=== PATIENT | female | born 1970 | race Caucasian/White ===

== ENCOUNTER 2016-06-05 10:16 | Inpatient (IN) | payer MEDICAID ==
[2016-06-05] VITALS (9 sets, daily range): BP systolic 107–152; BP diastolic 61–99; PULSE 65–86; RESP 14–19; TEMP 97.8–98.9; O2SAT 93–99
[~2016-06-05] VITALS: Ht 162.6 cm; Wt 79.4 kg
[~2016-06-05 10:16] MED LIST: ADVAI100I INH; ATOR80TA PO; BUSP15TA PO; DULO30 PO; GABA600T PO; LISI-363 PO; MORP15IN3 IMPLANPUMP; MSIR15 PO; TRAZ100 PO; VIST25CA PO
--- NOTE | 2016-06-05 10:34 | PD ---
HPI Chief Complaint: OD/ Ingestion Time Seen by Provider: 10:28 Travel History International Travel<30 days: No Contact w/Intl Traveler<30days: No Traveled to known affect area: No History of Present Illness HPI 45-year-old female came to the emergency room brought by EMS after she had been feeling lethargic and sleepy for past 2 days. Patient is on morphine pump as well as by mouth morphine for chronic pain. When they arrived they noticed that she was very groggy and slurred speech. We gave her IV Narcan which made the patient wake up a little bit and improved her oxygen saturation as well as blood pressure. Upon arrival to the emergency room patient continued to look lethargic and slurred speech but was answering questions appropriately. Her blood pressure was 105 systolic. Oxygen saturation was 95% on room air. Patient is a chronic smoker but does not require oxygen on a daily basis. She has history of cervical disc problems because of which she is on pain management. Patient says that she has not been feeling well for past 2-3 days because of increased sleepiness and lethargy. EMS noticed that her morphine pill bottle was missing 6 extra pills. Patient is refusing any suicidal ideations currently. [facility] Past Medical History Narrative Medical List of her past medical, social and family history was reviewed from the nursing note. Arthritis: Yes Asthma: Yes Anxiety: Yes Depression: Yes Cancer: No Diabetes: No Diminished Hearing: No Endocrine: No Fibromyalgia: Yes Gastrointestinal Disorders: No Hepatitis: No Hiatal Hernia: No Hypertension: Yes Immune Disorder: Yes (FIBROMYALGIA) Inguinal Hernia: Yes Medical other: No Musculoskeletal: Yes (FIBROMYALGA. NECK AND BACK,RSD, ARTHRITIS) Neurologic: Yes (COMPLEX REGIONAL PAIN SYNDROME (RSD) IN R HAND/ARM) Psychiatric: Yes (ANXIETY/ DEPRESSION) Reproductive: No Respiratory: Yes (ASTHMA) Thyroid Disease: No ?: Not Past Surgical History Abdominal Surgery: Yes (ABD.L HERNIA REPS X 6, ;,TAI) AICD: No Body Medical Devices: RIGHT URETERAL PSOLIS HITCH, PAIN PUMP Cardiac Surgery: No Section: Yes Ear Surgery: No Endocrine Surgery: No Eye Surgery: No Genitourinary Surgery: Yes (R KIDNEY/ BLADDER RECONSTR. WITH PSOLIS HITCH 2005) Gynecologic Surgery: Yes (C SECTION,HYSTERECTOMY 2004) Hysterectomy: Yes Joint Replacement: No Neurologic Surgery: No Pacemaker: No Thoracic Surgery: No Other Surgery: Yes (KIDNEY SX) Social History Alcohol Use: Yes (2-3 BEER/DAILY) Tobacco Use: Yes (1/2 PPD) Substance Use: No Allergies-Medications (Allergen,Severity, Reaction): Coded Allergies: Hydrocodone (Verified Allergy, Severe, Itching, 06/05/16) IRRITABILITY Simvastatin (Unverified Allergy, Severe, Irritability/Anxiety, 06/05/16) Tramadol (Unverified Allergy, Severe, Irritability/Anxiety, 06/05/16) Comments List of her allergies reviewed from the nursing note. Reported Meds & Prescriptions Reported Meds & Active Scripts Active Reported Trazodone HCl 100 Mg Tab 300 Mg PO HS Lisinopril 20 Mg Tab 20 Mg PO BID Gabapentin 600 Mg Tab 600 Mg PO QID Baclofen 10 Mg Tab 10 Mg PO TID PRN Vistaril (Hydroxyzine Pamoate) 25 Mg Cap 25 Mg PO TID Morphine Inj (Morphine Sulfate) 5 Mg/Ml Inj 4.4971 Mg IMPLANPUMP CONTINUOUS Morphine IR (Morphine Sulfate) 15 Mg Tab 15 Mg PO BID PRN Temazepam 30 Mg Cap 30 Mg PO HS PRN Advair Diskus Inh (Fluticasone-Salmeterol Inh) 250-50 Mcg/Blist Aer 1 Puff INH BID Rinse mouth after use. Narrative Medication List of her home medications reviewed from the nursing note. Review of Systems Except as stated in HPI: all other systems reviewed are Neg Physical Exam Narrative GENERAL: Lethargic, slurred speech, no obvious distress SKIN: Warm and dry. HEAD: Atraumatic. Normocephalic. EYES: Pupils equal and round. No scleral icterus. No injection or drainage. ENT: No nasal bleeding or discharge. Mucous membranes pink and moist. NECK: Trachea midline. No JVD. CARDIOVASCULAR: Regular rate and rhythm. No murmur appreciated. RESPIRATORY: No accessory muscle use. Clear to auscultation. Breath sounds equal bilaterally. GASTROINTESTINAL: Abdomen soft, non-tender, nondistended. Hepatic and splenic margins not palpable. MUSCULOSKELETAL: No obvious deformities. No clubbing. No cyanosis. No edema. NEUROLOGICAL: GCS of 14. No obvious cranial nerve deficits. Motor grossly within normal limits. Slurred speech. PSYCHIATRIC: Appropriate mood and affect; insight and judgment normal. Data Data Last Documented VS Vital Signs Date Time Temp Pulse Resp B/P Pulse Ox O2 Delivery O2 Flow Rate FiO2 06/05/16 13:00 86 18 152/99 99 Nasal Cannula 4 06/05/16 10:39 98.9 Orders Electrocardiogram (06/05/16 ) Ammonia (06/05/16 10:28) Complete Blood Count With Diff (06/05/16 10:28) Comprehensive Metabolic Panel (06/05/16 10:28) Creatine Kinase (Cpk) (06/05/16 10:28) Prothrombin Time / Inr (Pt) (06/05/16 10:28) Troponin I (06/05/16 10:28) Thyroid Stimulating Hormone (06/05/16 10:28) Urinalysis - C+S If Indicated (06/05/16 10:28) Chest, Single Ap (06/05/16 10:28) Ct Brain W/O Iv Contrast(Rout) (06/05/16 10:28) Blood Glucose (06/05/16 10:28) Ecg Monitoring (06/05/16 10:28) Iv Access Insert/Monitor (06/05/16 10:28) Oximetry (06/05/16 10:28) Sodium Chloride 0.9% Flush (Ns Flush) (06/05/16 10:30) Arterial Blood Gas (Abg) (06/05/16 ) Sodium Chlorid 0.9% 500 Ml Inj (Ns 500 M (06/05/16 10:45) CKMB (06/05/16 11:00) CKMB% (06/05/16 11:00) Drug Screen, Random Urine (06/05/16 12:10) Urine Culture (06/05/16 11:40) Naloxone Inj (Narcan Inj) (06/05/16 12:30) Naloxone Inj (Narcan Inj) (06/05/16 13:00) Sodium Chlor 0.9% 1000 Ml Inj (Ns 1000 M (06/05/16 13:00) Admit Order (Ed Use Only) (06/05/16 13:02) Labs Laboratory Tests Test 06/05/16 06/05/16 06/05/16 11:00 11:40 12:03 Prothrombin Time 10.7 SEC Prothromb Time International 1.0 RATIO Ratio Sodium Level 139 MEQ/L Potassium Level 3.8 MEQ/L Chloride Level 98 MEQ/L Carbon Dioxide Level 33.3 MEQ/L Anion Gap 8 MEQ/L Blood Urea Nitrogen 9 MG/DL Creatinine 1.15 MG/DL Estimat Glomerular Filtration 51 ML/MIN Rate Random Glucose 91 MG/DL Calcium Level 8.5 MG/DL Total Bilirubin 0.6 MG/DL Aspartate Amino Transf 29 U/L (AST/SGOT) Alanine Aminotransferase 15 U/L (ALT/SGPT) Alkaline Phosphatase 71 U/L Ammonia 43 MCMOL/L Total Creatine Kinase 206 U/L Creatine Kinase MB 3.3 NG/ML Creatine Kinase MB % 1.6 % Troponin I LESS THAN 0.02 NG/ML Total Protein 6.6 GM/DL Albumin 3.0 GM/DL Thyroid Stimulating Hormone 1.740 uIU/ML 3rd Gen White Blood Count 9.6 TH/MM3 Red Blood Count 4.45 MIL/MM3 Hemoglobin 13.7 GM/DL Hematocrit 40.3 % Mean Corpuscular Volume 90.4 FL Mean Corpuscular Hemoglobin 30.7 PG Mean Corpuscular Hemoglobin 34.0 % Concent Red Cell Distribution Width 16.2 % Platelet Count 366 TH/MM3 Mean Platelet Volume 7.6 FL Neutrophils (%) (Auto) 60.4 % Lymphocytes (%) (Auto) 23.2 % Monocytes (%) (Auto) 10.2 % Eosinophils (%) (Auto) 5.7 % Basophils (%) (Auto) 0.5 % Neutrophils # (Auto) 5.8 TH/MM3 Lymphocytes # (Auto) 2.2 TH/MM3 Monocytes # (Auto) 1.0 TH/MM3 Eosinophils # (Auto) 0.6 TH/MM3 Basophils # (Auto) 0.0 TH/MM3 CBC Comment DIFF FINAL Differential Comment Urine Opiates Screen POS Urine Barbiturates Screen NEG Urine Amphetamines Screen NEG Urine Benzodiazepines Screen POS Urine Cocaine Screen NEG Urine Cannabinoids Screen NEG Urine Color YELLOW Urine Turbidity HAZY Urine pH 7.0 Urine Specific [place] 1.011 Urine Protein NEG mg/dL Urine Glucose (UA) NEG mg/dL Urine Ketones NEG mg/dL Urine Occult Blood TRACE Urine Nitrite POS Urine Bilirubin NEG Urine Urobilinogen LESS THAN 2.0 MG/DL Urine Leukocyte Esterase LARGE Urine RBC 1 /hpf Urine WBC 77 /hpf Urine Bacteria MANY /hpf Urine Hyaline Casts 4 /lpf Microscopic Urinalysis Comment CATH-CULTURE IND Blood Gas Puncture Site LT RADIAL Blood Gas Patient Temperature 98.6 Blood Gas HCO3 33 mmol/L Blood Gas Base Excess 7.6 mmol/L Blood Gas Oxygen Saturation 77 % Arterial Blood pH 7.37 Arterial Blood Partial 58 mmHg Pressure CO2 Arterial Blood Partial 53 mmHG Pressure O2 Arterial Blood Oxygen Content 13.9 Vol % Arterial Blood 5.2 % Carboxyhemoglobin Arterial Blood Methemoglobin 2.6 % Blood Gas Hemoglobin 12.9 G/DL Blood Gas Inspired Oxygen 21 % MDM Medical Decision Making Medical Screen Exam Complete: Yes Emergency Medical Condition: Yes Medical Record Reviewed: Yes Interpretation(s) Twelve-lead EKG was reviewed by me. Normal sinus rhythm, normal axis, nonspecific ST-T wave changes. Heart rate of 79 bpm. Differential Diagnosis Accidental Morphine overdose, intracranial bleed, sepsis Narrative Course 12:47 PM patient started to get progressively more lethargic. She was hypoxic on room air to low 90s. Blood gas was done which shows normal pH but increased PCO2 and decreased PO2. I just reassessed her and she was difficult to be aroused. GCS was 12. I decided to give her 2 mg of Narcan which woke her up. Patient has a morphine pump still growing and it is into subcutaneous tissue. There is no way for me to turn that off. However it should be turned off given the fact that she is opiate overdose and the medication from the pump is counterproductive is in the current management for this OD. The nurse is trying to find instructions for it. Patient's blood pressure was 87/45. She is on a nasal cannula 2 L saturating 98%. I've ordered a liter of IV fluid bolus. She will require admission. Awaiting for the hospitalist to call back. Chest x-ray and head CT were within normal limits. I started her on Narcan drip. Patient should go to the ICU. Awaiting for the breastfeeding educator to call back. 1.30 PM the [employer] rep will be coming to dial it down. He asked me to order it. Critical Care Narrative Aggregate critical care time was 75 minutes. Time to perform other separately billable procedures was not included in the critical care time. My time did not include minutes spent treating any other patients simultaneously or on activities that did not directly contribute to the patient's treatment. The services I provided to this patient were to treat and/or prevent clinically significant deterioration that could result in: Altered mental status, accidental opiate overdose, cardiorespiratory depression, Narcan drip I provided critical care services requiring my management, as noted below: Chart data review, documentation time, medication orders and management, vital sign assessments/reviewing monitor data, ordering and reviewing lab tests, ordering and interpreting/reviewing x-rays and diagnostic studies, care of the patient and discussion of the patient with the admitting physicians. Procedures EKG Prior to Arrival: Yes Diagnosis Primary Impression: Altered mental status Qualified Code: R40.1 - Stupor Additional Impressions: cardiorespiratory depression Opiate overdose Qualified Code: T40.601A - Opiate overdose, accidental or unintentional, initial encounter Admitting Information Admitting Physician Requests: Admit Dhruv Leal MD Jun 05, 2016 10:34
[2016-06-05] MEDS ORDERED: SODIUM CHLORID 0.9% 500 ML INJ 500 ML IV ONE (10:45)
[2016-06-05] MEDS ORDERED: VIST25CA PO (11:16)
[2016-06-05] MEDS ORDERED: ADVA250A INH (11:16)
[2016-06-05] MEDS ORDERED: BACL10TA PO (11:16)
[2016-06-05] MEDS ORDERED: MORP1INJ IMPLANPUMP (11:16)
[2016-06-05] MEDS ORDERED: TEMA30CA PO (11:16)
[2016-06-05] MEDS ORDERED: GABA600T PO (11:16)
[2016-06-05] MEDS ORDERED: LISI-515 PO (11:16)
[2016-06-05] MEDS ORDERED: MSIR15 PO (11:16)
[2016-06-05] MEDS ORDERED: TRAZ100T5 PO (11:17)
--- NOTE | 2016-06-05 11:26 | RADRPT ---
EXAM DATE/TIME: 06/05/2016 10:51 [facility] COMPARISON: CHEST SINGLE AP, February 12, 2016, 16:52. INDICATIONS : Syncope, Worsening Short of Breath. MEDICAL HISTORY : Hypertension. SURGICAL HISTORY : Hysterectomy. section. ENCOUNTER: Initial ACUITY: 2 days PAIN SCORE: 0/10 LOCATION: Bilateral chest FINDINGS: A single view of the chest demonstrates the lungs to be symmetrically aerated without evidence of mas s, infiltrate or effusion. The cardiomediastinal contours are unremarkable. Osseous structures are intact. CONCLUSION: No evidence of acute cardiopulmonary disease. Chalino Landeros MD on June 05, 2016 at 11:25 Board Certified Radiologist. This report was verified electronically.
--- NOTE | 2016-06-05 11:31 | RADRPT ---
EXAM DATE/TIME: 06/05/2016 11:11 [facility] COMPARISON: No previous studies available for comparison. INDICATIONS : Altered mental status. RADIATION DOSE: 40.38 CTDIvol (mGy) MEDICAL HISTORY : Hypertension. Fibromyalgia. SURGICAL HISTORY : Hysterectomy. ENCOUNTER: Initial ACUITY: 1 day PAIN SCALE: 0/10 LOCATION: cranial TECHNIQUE: Multiple contiguous axial images were obtained of the head. Using automated exposure control and adj ustment of the mA and/or kV according to patient size, radiation dose was kept as low as reasonably a chievable to obtain optimal diagnostic quality images. FINDINGS: CEREBRUM: The ventricles are normal for age. No evidence of midline shift, mass lesion, hemorrhage or acute in farction. No extra-axial fluid collections are seen. POSTERIOR FOSSA: The cerebellum and brainstem are intact. The 4th ventricle is midline. The cerebellopontine angle i s unremarkable. EXTRACRANIAL: There is mild paranasal sinus mucoperiosteal thickening, mainly the ethmoid air cells. SKULL: The calvaria is intact. No evidence of skull fracture. CONCLUSION: No acute intracranial abnormality. Mild sinus disease. Chalino Landeros MD on June 05, 2016 at 11:29 Board Certified Radiologist. This report was verified electronically.
[2016-06-05 11:32] LABS: AUTOMATED NEUTROPHIL # 5.8 TH/MM3 (1.8-7.7); BASOPHIL % 0.5 % (0.0-2.0); EOSINOPHIL # 0.6 TH/MM3 (0-0.4); EOSINOPHIL % 5.7 % (0.0-4.0); HEMATOCRIT 40.3 % (35.0-46.0); HEMO FLAGS DIFF FINAL; LYMPH % 23.2 % (9.0-44.0); LYMPHOCYTE # 2.2 TH/MM3 (1.0-4.8); MEAN CELL VOLUME 90.4 FL (80.0-100.0); MEAN CORPUSCULAR HEMOGLOBIN 30.7 PG (27.0-34.0); MONO % 10.2 % (0.0-8.0); NEUT % 60.4 % (16.0-70.0); PLATELET COUNT 366 TH/MM3 (150-450); RED BLOOD COUNT 4.45 MIL/MM3 (4.00-5.30); RED CELL DISTRIBUTION WIDTH 16.2 % (11.6-17.2); WHITE BLOOD COUNT 9.6 TH/MM3 (4.0-11.0)
[2016-06-05 11:39] LABS: PROTHROMBIN TIME - PATIENT 10.7 SEC (9.8-11.6)
[2016-06-05 12:04] LABS: ALKALINE PHOSPHATASE 71 U/L (45-117); ALT (GPT) 15 U/L (10-53); ANION GAP 8 MEQ/L (5-15); BICARBONATE 33.3 MEQ/L (21.0-32.0); BLOOD UREA NITROGEN 9 MG/DL (7-18); CHLORIDE 98 MEQ/L (98-107); CREATINE KINASE 206 U/L (26-192); GLOMERULAR FILTRATION RATE 51 ML/MIN (>89); SODIUM (NA) 139 MEQ/L (136-145); TOTAL BILIRUBIN ADULT 0.6 MG/DL (0.2-1.0)
[2016-06-05 12:05] LABS: AST (GOT) 29 U/L (15-37); POTASSIUM 3.8 MEQ/L (3.5-5.1)
[2016-06-05 12:14] LABS: BLOOD GAS BASE EXCESS 7.6 mmol/L (-2-2); BLOOD GAS CARBOXYHEMOGLOBIN 5.2 % (0-4); BLOOD GAS HCO3 33 mmol/L (22-26); BLOOD GAS METHEMOGLOBIN 2.6 % (0-2); BLOOD GAS O2 HGB SATURATION 77 % (90-100); BLOOD GAS OXYGEN CONTENT 13.9 Vol % (12.0-20.0); BLOOD GAS PCO2 58 mmHg (38-42); BLOOD GAS PO2 53 mmHG (61-120); BLOOD GAS TOTAL HGB 12.9 G/DL (12.0-16.0); TEMP CORR TO 98.6
[2016-06-05 12:15] LABS: CRITICAL VALUE YES; DRAW SITE LT RADIAL; FIO2 21 %; NUMBER OF ARTERIAL PUNCTURES 1; STAT YES; ULNAR PULSE PRESENT
[2016-06-05 12:16] LABS: BACTERIA, URINE MANY /hpf; BLOOD, URINE TRACE (NEG); COMMENT (UR) CATH-CULTURE IND; CULTURE IF INDICATED CATH CULTURE IND; GLUCOSE,URINE NEG (NEG); HYALINE CAST, URINE 4 /lpf (RARE); KETONE, URINE NEG (NEG); NITRITE,URINE POS (NEG); URINE COLOR YELLOW (YELLW/STRAW)
[2016-06-05 12:18] LABS: CKMB 3.3 NG/ML (0.5-3.6)
[2016-06-05 12:25] LABS: AMPHETAMINE, URINE NEG (NEG); BARBITURATES, URINE NEG (NEG); COCAINE, URINE NEG (NEG)
[2016-06-05] MEDS ORDERED: NALOXONE HCL 2 MG/2 ML VIAL IV PUSH ONE (12:30)
[2016-06-05] MEDS ORDERED: SODIUM CHLOR 0.9% 1000 ML INJ 1,000 ML IV ONE (13:00)
[2016-06-05] MEDS ORDERED: NALOXONE INJ 4 MG in DEXTROSE 5% IN WATER INJ 246 ML IV SCH ×2 (13:00)
[2016-06-05] MEDS ORDERED: CHLORHEXIDINE GLUCONATE 2 % 1 PACK (2 CLOTHS) TOP PRN (13:15)
[2016-06-05] MEDS ORDERED: MISCELLANEOUS NURSING INFORMATION XX SCH (13:15)
[2016-06-05] MEDS ORDERED: RESP: ALBUTEROL 2.5 MG/IPRATROPIUM 0.5 MG NEB (PRN) INH (13:15)
[2016-06-05] MEDS ORDERED: GLUCAGON 1 MG/ML VIAL OTHER PRN (14:15)
[2016-06-05] MEDS ORDERED: DEXTROSE 50% IN WATER 50 ML VIAL(D50) IV PUSH PRN (14:15)
[2016-06-05] MEDS: ENOXAPARIN SODIUM 40 MG/0.4 ML SYRINGE SQ SCH (14:34)
[2016-06-05] MEDS: DEXT 5%-NACL 0.9% 1000 ML INJ 1,000 ML IV SCH ×2 (14:34→18:11)
--- NOTE | 2016-06-05 15:09 | MH ---
cc: YAQUELIN CAMPOS DATE OF ADMISSION: 06/05/2016 DATE OF : 1970 HISTORY: The patient is a 45 year-old female with past medical history of bronchial asthma, anxiety, depression, fibromyalgia, chronic pain syndrome on p.o. Morphine at home in addition to morphine pump. She was brought into the [facility] Emergency Department for lethargy and also for altered mental status. According to the patients father the patient was very lethargic. She came trembling and was getting argumentative. He subsequently called [facility] Medical [facility] and when the arrived they noticed the patient to be groggy with slurred speech. She was given Narcan IV and subsequently she woke up and improved her o2 saturation and blood pressure as well. When she arrived to the emergency department the patient began lethargic again however, she was answering questions appropriately. She had an o2 saturation of 95% on room air. The patient does have a history of cervical disc problems and she is on pain management. She was given additional dose of Narcan 2 mg IV push which improved her mental status. In the emergency room she was given approximately 1.5 liters of normal saline. Arterial blood gas was preformed on room air which showed likely mixed venous gas with pH of 7.37, co2 58, pa02 53, blood clot 33, saturations 77%. When seen the patient was awake, alert, laying in bed in no acute respiratory distress. She is on four liters of oxygen with saturation of 97%. Her urine drug screen was positive for opiates and benzodiazepines. Due to her initial mental status a CT scan of the brain was obtained which showed no acute intracranial abnormality. Also a chest x-ray was done which showed no evidence of any acute cardiopulmonary disease. No evidence of any fever or leukocytosis. She denies any suicidal ideations. PAST MEDICAL HISTORY: 1. Significant for bronchial asthma. 2. Depression. 3. Chronic pain syndrome. 4. Fibromyalgia. 5. Cervical disc disease of the neck and back. 6. Arthritis. PAST SURGICAL HISTORY: 1. Previous section. 2. Previous hysterectomy 3. Morphine pain pump placement. 4. Renal surgery. SOCIAL HISTORY: Active smoker and drinker. ALLERGIES TRAMADOL SIMVASTATIN HYDROCODONE REPORTED MEDICATIONS: 1. Advair. 2. Morphine sulfate p.o. 15 mg 3. Vistaril 4. Baclofen 5. Gabapentin 6. Lisinopril 7. Trazodone FAMILY HISTORY: Noncontributory. REVIEW OF SYSTEMS As per history of present illness. The rest of the review of systems is unremarkable. PHYSICAL EXAMINATION: IN GENERAL: A 45 year-old female lying in bed in no acute respiratory distress. VITAL SIGNS: Temperature 98.9, pulse 87, blood pressure 152/99, saturation 97% on four liters of oxygen. HEAD, EYES, EARS, NOSE, AND THROAT: Atraumatic, normocephalic. Pupils equal, round, reactive to light and accommodation. Extraocular muscles intact, conjunctiva pink, nonicteric sclera, oral mucosa within normal limits. NECK: Supple, no jugular venous distention, adenopathy or thyromegaly trachea midline. CARDIOVASCULAR SYSTEM: Regular rate and rhythm, normal S1, S2, no murmurs, rubs, or gallops. RESPIRATORY: Bilateral equal entry, no rales or wheezing. ABDOMEN: The abdomen is soft, nontender, no distention. Positive bowel sounds. EXTREMITIES: No clubbing, cyanosis or edema. NEUROLOGIC: Awake, alert, no focal or sensory deficit. LABORATORY DATA: Sodium 139, potassium 3.8, chloride 98, co2 33, blood urea nitrogen 9, creatinine 1.15, glucose 91, ammonia 43. Aspartate aminotransferase 29, Alt 15, alkaline phosphatase 71. Total creatine kinase 206, pH 1.74. White blood cell 9.6, hemoglobin 13.7, hematocrit 40, platelet count 366, INR 1.0, PT 10.7. Urine drug screen is positive for opiates and benzodiazepines. Urinalysis is positive for leukocyte esterase, nitrates 77, white blood count many bacteria. RADIOGRAPHIC STUDIES: CT scan of the brain, negative for acute intracranial disease. A chest x-ray showed no acute cardiopulmonary disease. IMPRESSION: 1. Altered mental status improved post Narcan 2. Drug overdose with the urine drug screen positive for opiates and benzodiazepines. 3. Urinary tract infection. 4. Chronic pain syndrome. 5. Fibromyalgia. 6. Hypertension. 7. History of bronchial asthma. 8. Anxiety/depression. RECOMMENDATIONS: 1. Monitor neuro status and avoid sedatives. Hold Trazodone, Gabapentin. CT scan of the brain in the emergency room is negative for acute disease. We will place on Thiamine, Multivitamins. Folic acid given her ethyl alcohol use and monitor for signs of decrease. 2. Continue with oxygen and maintain saturations above 92%. 3. Bronchodilators in the form of duoneb q six plus q 2 as needed for shortness of breath. 4. Monitor heart rate and blood pressure and maintain map greater than 65 mmHg. She was given approximately 1.5 liters of crystalloids. We will place on IV fluids in the form of D5 normal saline at 75 mls per hour. 5. Monitor renal function, intake and output and electrolyte replacement as needed. 6. Start p.o. diet as tolerated. 7. Place on Rocephin 1 gram IV daily for urinary tract infection and follow up on urine culture. Chest x-ray on arrival showed no evidence of any acute cardiopulmonary disease. 8. Monitor complete blood count. 9. A sliding scale insulin is needed for glycemic control. 10. No indications for gastrointestinal prophylaxis. 11. Deep venous thrombosis prophylaxis for deep venous thrombosis and Lovenox 40 mg subcutaneous daily. 12. Further recommendations will be based on the hospital course. MD NIKKIE Pelayo/tena /2:02 PM /2:14 PM [facility]
[2016-06-05] MEDS: INSULIN NovoLIN REGULAR SUPPLEMENTAL SCALE SQ SCH ×2 (16:00→22:00)
[2016-06-05] MEDS: THIAMINE HCL 100 MG TAB PO SCH (16:00)
[2016-06-05] MEDS: FOLIC ACID 1 MG TAB PO SCH (16:00)
[2016-06-05] MEDS: RESP: ALBUTEROL 2.5 MG/IPRATROPIUM 0.5 MG NEB (SCH) INH ×2 (16:00→20:37)
[2016-06-05] MEDS: MULTIVITAMIN TAB PO SCH (16:00)
--- NOTE | 2016-06-05 17:23 | EKG ---
Date Performed: 06/05/2016 Time Performed: 10:32:03 PTAGE: 45 years EKG: Sinus rhythm Compared to prior tracing no significant change NORMAL ECG PREVIOUS TRACING : 02/12/2016 16.54 DOCTOR: Cachorro Carreno Interpretating Date/Time 06/05/2016 17:22:04
[2016-06-05] MEDS: cefTRIAXone INJ 1,000 MG in SODIUM CHLORIDE 0.9% INJ 100 ML IV SCH (18:11)
[2016-06-06] VITALS (14 sets, daily range): BP systolic 101–159; BP diastolic 59–89; PULSE 70–100; RESP 12–21; TEMP 97.7–98.8; O2SAT 94–99
[2016-06-06] MEDS: RESP: ALBUTEROL 2.5 MG/IPRATROPIUM 0.5 MG NEB (SCH) INH ×4 (03:35→20:46)
[2016-06-06] MEDS: INSULIN NovoLIN REGULAR SUPPLEMENTAL SCALE SQ SCH ×4 (04:00→22:00)
[2016-06-06] MEDS: CHLORHEXIDINE GLUCONATE 2 % 1 PACK (2 CLOTHS) TOP SCH (04:00)
[2016-06-06 04:44] LABS: AUTOMATED NEUTROPHIL # 7.2 TH/MM3 (1.8-7.7); BASOPHIL # 0.1 TH/MM3 (0-0.2); BASOPHIL % 0.6 % (0.0-2.0); EOSINOPHIL # 0.6 TH/MM3 (0-0.4); EOSINOPHIL % 5.8 % (0.0-4.0); HEMATOCRIT 39.2 % (35.0-46.0); HEMO FLAGS DIFF FINAL; LYMPH % 19.1 % (9.0-44.0); LYMPHOCYTE # 2.1 TH/MM3 (1.0-4.8); MEAN CELL VOLUME 91.3 FL (80.0-100.0); MEAN CORPUSCULAR HEMOGLOBIN 29.8 PG (27.0-34.0); MEAN CORPUSCULAR HGB CONC 32.6 % (32.0-36.0); MONO % 8.2 % (0.0-8.0); NEUT % 66.3 % (16.0-70.0); PLATELET COUNT 359 TH/MM3 (150-450); RED CELL DISTRIBUTION WIDTH 16.7 % (11.6-17.2); WHITE BLOOD COUNT 10.8 TH/MM3 (4.0-11.0)
[2016-06-06 05:05] LABS: ALT (GPT) 13 U/L (10-53); ANION GAP 8 MEQ/L (5-15); AST (GOT) 14 U/L (15-37); BICARBONATE 33.5 MEQ/L (21.0-32.0); BLOOD UREA NITROGEN 9 MG/DL (7-18); CHLORIDE 102 MEQ/L (98-107); GLOMERULAR FILTRATION RATE 67 ML/MIN (>89); POTASSIUM 3.3 MEQ/L (3.5-5.1); SODIUM (NA) 143 MEQ/L (136-145)
[2016-06-06 05:07] LABS: ALKALINE PHOSPHATASE 64 U/L (45-117); TOTAL BILIRUBIN ADULT 0.5 MG/DL (0.2-1.0)
[2016-06-06] MEDS ORDERED: POTASSIUM CHLORIDE 10 MEQ CONTROLLED RELEASE TAB PO ONE (08:15)
--- NOTE | 2016-06-06 08:19 | PD.TRANSFR ---
Transfer Summary Admission Date Jun 05, 2016 at 13:04 Admitting Diagnosis altered mental status, opiate overdose, hypoxia Diagnoses: (1) Altered mental status Diagnosis: Principal (2) Opiate overdose Diagnosis: Principal (3) Hypokalemia Diagnosis: Principal (4) UTI (urinary tract infection) Diagnosis: Principal (5) Chronic low back pain Diagnosis: Secondary (6) Hypertension Diagnosis: Secondary Transfer Summary/Subjective The patient is a 45 year-old female with past medical history of bronchial asthma, anxiety, depression, fibromyalgia, chronic pain syndrome on p.o. Morphine at home in addition to morphine pump. She was brought into the [facility] Emergency Department for lethargy and also for altered mental status. According to the patients father the patient was very lethargic. She came trembling and was getting argumentative. He subsequently called Emergency Medical Services and when the arrived they noticed the patient to be groggy with slurred speech. She was given Narcan IV and subsequently she woke up and improved her o2 saturation and blood pressure as well. When she arrived to the emergency department the patient began lethargic again however, she was answering questions appropriately. She had an o2 saturation of 95% on room air. The patient does have a history of cervical disc problems and she is on pain management. She was given additional dose of Narcan 2 mg IV push which improved her mental status. In the emergency room she was given approximately 1.5 liters of normal saline. Arterial blood gas was preformed on room air which showed likely mixed venous gas with pH of 7.37, co2 58, pa02 53, blood clot 33, saturations 77%. When seen the patient was awake, alert, laying in bed in no acute respiratory distress. She is on four liters of oxygen with saturation of 97%. Her urine drug screen was positive for opiates and benzodiazepines. Due to her initial mental status a CT scan of the brain was obtained which showed no acute intracranial abnormality. Also a chest x-ray was done which showed no evidence of any acute cardiopulmonary disease. No evidence of any fever or leukocytosis. She denies any suicidal ideations. 06/06: Sitting up in bed. No acute distress. No suicidal ideation. Complaints of back pain Objective Vital Signs Date Time Temp Pulse Resp B/P Pulse Ox O2 Delivery O2 Flow Rate FiO2 06/06/16 07:00 99 Nasal Cannula 2.00 06/06/16 06:00 87 06/06/16 04:00 98.1 12 112/60 Intake and Output 06/05/16 06/05/16 06/06/16 08:00 16:00 00:00 Intake Total 1033 ml Output Total 2000 ml Balance -967 ml Result Diagram: 06/06/16 0427 06/06/16 0427 Other Results Laboratory Tests Test 06/05/16 12:03 Blood Gas Puncture Site LT RADIAL Blood Gas Patient Temperature 98.6 Blood Gas HCO3 33 mmol/L (22-26) Blood Gas Base Excess 7.6 mmol/L (-2-2) Blood Gas Oxygen Saturation 77 % (90-100) Arterial Blood pH 7.37 (7.380-7.420) Arterial Blood Partial 58 mmHg (38-42) Pressure CO2 Arterial Blood Partial 53 mmHG Pressure O2 (61-120) Arterial Blood Oxygen Content 13.9 Vol % (12.0-20.0) Arterial Blood 5.2 % (0-4) Carboxyhemoglobin Arterial Blood Methemoglobin 2.6 % (0-2) Blood Gas Hemoglobin 12.9 G/DL (12.0-16.0) Blood Gas Inspired Oxygen 21 % Objective Remarks PHYSICAL EXAMINATION: IN GENERAL: A 45 year-old female lying in bed in no acute respiratory distress. HEENT: Atraumatic, normocephalic. Pupils equal NECK: Supple, no jugular venous distention CARDIOVASCULAR SYSTEM: Regular rate and rhythm, normal S1, S2, no murmurs, rubs , or gallops. RESPIRATORY: Bilateral equal entry, no rales or wheezing. ABDOMEN: The abdomen is soft, nontender, no distention. Positive bowel sounds. EXTREMITIES: No clubbing, cyanosis or edema. NEUROLOGIC: Awake, alert, no focal deficit. A/P Assessment and Plan ASSESSMENT Altered mental status improved post Narcan Drug overdose with the urine drug screen positive for opiates and benzodiazepines. Urinary tract infection. Chronic pain syndrome. Fibromyalgia. Hypertension. History of bronchial asthma. Anxiety/depression. RECOMMENDATIONS: -Monitor neuro status and avoid sedatives. Hold Trazodone, Gabapentin. -CT scan of the brain in the emergency room is negative for acute disease. -Continue Thiamine, Multivitamins. Folic acid given her ethyl alcohol use and monitor for signs of decrease. -Continue with oxygen and maintain saturations above 92%. -Bronchodilators in the form of duoneb q six plus q 2 as needed for shortness of breath. -Monitor heart rate and blood pressure and maintain map greater than 65 mmHg. -DC IVF -Monitor renal function, intake and output and electrolyte replacement as needed. -Advance diet as tolerated -Continue Rocephin 1 gram IV daily for urinary tract infection and follow up on urine culture. -Monitor complete blood count. -No indications for gastrointestinal prophylaxis. -Deep venous thrombosis prophylaxis for deep venous thrombosis and Lovenox 40 mg subcutaneous daily. Dispo: Psych consulted. Transferred to [facility]. Hospitalist consulted to assume care Taylor Allred MD Jun 06, 2016 08:19 shortness of breath. 4. Monitor heart rate and blood pressure and maintain map greater than 65 mmHg. She was given approximately 1.5 liters of crystalloids. We will place on IV fluids in the form of D5 normal saline at 75 mls per hour. 5. Monitor renal function, intake and output and electrolyte replacement as needed. 6. Start p.o. diet as tolerated. 7. Place on Rocephin 1 gram IV daily for urinary tract infection and follow up on urine culture. Chest x-ray on arrival showed no evidence of any acute cardiopulmonary disease. 8. Monitor complete blood count. 9. A sliding scale insulin is needed for glycemic control. 10. No indications for gastrointestinal prophylaxis. 11. Deep venous thrombosis prophylaxis for deep venous thrombosis and Lovenox 40 mg subcutaneous daily. 12. Further recommendations will be based on the hospital course. MD Chalino Pelayo Sinoj K. MD Jun 06, 2016 08:19
[2016-06-06] MEDS: THIAMINE HCL 100 MG TAB PO SCH (08:58)
[2016-06-06] MEDS: FOLIC ACID 1 MG TAB PO SCH (08:58)
[2016-06-06] MEDS: MULTIVITAMIN TAB PO SCH (08:58)
[2016-06-06] MEDS: ACETAMINOPHEN 325 MG TAB PO PRN ×2 (10:54→20:10)
--- NOTE | 2016-06-06 11:45 | PD.CONS ---
Provisional Diagnosis Admission Date Jun 05, 2016 at 13:04 [place]. Accidental drug overdose P50.901a History of Present Illness Service Psychiatry Consult Requested By Attending James Reason for Consult Altered mental status Primary Care Physician No Primary Care Physician HPI Patient is a 45 white female who lives with her father history of chronic pain that has a morphine pump also takes supplemental oral morphine. Patient seen by a pain doctor. Was found by her father and obtunded state. Paramedics were called. Patient did respond appropriately to the use of Narcan. In toxicology was positive for opiates and benzodiazepines. At the present time patient sitting quietly in her room 510. Patient's father present throughout session as agreed to with the patient. Patient alert oriented calm cooperative at this time denies any suicidal homicidal ideation intent or plan at any time at this denies any voices or visions with this stating she thought she was taking her oral morphine is given. Though she is also multiple other medications she does see some clinician through [facility]. Patient denies any inpatient psychiatric hospitalization. Patient denies any alcohol use since July 2015. She denies other drug use. At the present time patient does not meet Leal act criteria. Does not meet criteria for inpatient psychiatric hospitalization. Would suggest perhaps that she or she and her father better monitor and dispense medications sister appears to be a multiplicity of physicians medications prescribed for this lady. No reformations medication by me thanks for consult I will sign off the present time Review of Systems Except as stated in HPI: all other systems reviewed are Neg Past Family Social History Coded Allergies: Hydrocodone (Verified Allergy, Severe, Itching, 06/05/16) IRRITABILITY Simvastatin (Unverified Allergy, Severe, Irritability/Anxiety, 06/05/16) Tramadol (Unverified Allergy, Severe, Irritability/Anxiety, 06/05/16) Past Medical History History chronic pain Reported Medications Trazodone HCl 100 Mg [id number] Mg PO HS 06/05/16 Lisinopril 20 Mg Tab20 Mg PO BID #30 TAB Ref 0 06/05/16 Gabapentin 600 Mg [id number] Mg PO QID #90 TAB Ref 0 06/05/16 Baclofen 10 Mg Tab10 Mg PO TID PRN (MUSCLE SPASM) Ref 0 06/05/16 Hydroxyzine Pamoate (Vistaril)25 Mg Cap25 Mg PO TID Ref 0 06/05/16 Morphine Inj 5 Mg/Ml Inj4.4971 Mg IMPLANPUMP CONTINUOUS 06/05/16 Morphine IR 15 Mg Tab15 Mg PO BID PRN (BREAKTHROUGH PAIN) Ref 0 06/05/16 Temazepam 30 Mg Cap30 Mg PO HS PRN (INSOMNIA) #30 CAP Ref 0 06/05/16 Fluticasone-Salmeterol Inh (Advair Diskus Inh)250-50 Mcg/Blist Aer1 Puff INH BID #1 INHALER Ref 0 Rinse mouth after use. 06/05/16 Current Medications Medications (Trade) Dose Ordered Sig/Tere Route Start Time Stop Time Status Last Admin IV Flush 2 ml 2 ml UNSCH PRN IVF 06/05/16 10:30 (Narcan Inj/D5W Inj) 250 ml @ 0 mls/hr TITRATE IV 06/05/16 13:00 (Lovenox Inj) 40 mg Q24H SQ 06/05/16 14:00 06/05/16 14:34 Miscellaneous Information 1 [id number] XX 06/05/16 13:15 (Chlorhexidine 2% Cloth) 3 pack Taper DAILY@04 TOP 06/06/16 04:00 06/02/17 03:59 Chlorhexidine Gluconate 3 pack 3 pack UNSCH PRN TOP 06/05/16 13:15 (Rocephin Inj/NS Inj) 100 ml @ 200 mls/hr Q24H IV 06/05/16 16:00 06/05/16 18:11 (Vitamin B1) 100 mg DAILY PO 06/05/16 16:00 06/06/16 08:58 (Theragran) 1 tab DAILY PO 06/05/16 16:00 06/06/16 08:58 (Folate) 1 mg DAILY PO 06/05/16 16:00 06/06/16 08:58 (D50w (Vial) Inj) 25 ml UNSCH PRN IV PUSH 06/05/16 14:15 (Glucagon Inj) 1 mg UNSCH PRN OTHER 06/05/16 14:15 (NovoLIN R SUPPLEMENTAL SCALE) 1 Q6H SQ 06/05/16 16:00 (Tylenol) 650 mg Q6H PRN PO 06/06/16 11:00 06/06/16 10:54 Family History No history mental health and family Social History Patient lives with father Patient's Strengths (min. 2) Patient verbal [facility] has supportive father Physical Exam Please see med surge assessment Vital Signs Vital Signs Date Time Temp Pulse Resp B/P Pulse Ox O2 Delivery O2 Flow Rate FiO2 06/06/16 07:00 99 Nasal Cannula 2.00 06/06/16 06:00 87 06/06/16 04:00 98.1 12 112/60 I/O 06/05/16 06/05/16 06/06/16 08:00 16:00 00:00 Intake Total 1033 ml Output Total 2000 ml Balance -967 ml Mental Status Examination Alert oriented white female laying calmly in bed with father and nurse present throughout session calm cooperative with good eye contact Speech: Pressured Orientation: x3 Memory: Unremarkable Thought Process: Logical Thought Content: Unremarkable Hallucination Type: None Attention and Concentration: Good Suicidal Ideation: No Homicidal Ideation: No Previous Homicide Attempts: No Insight: Fair Judgement: Poor Affect: Other (good range and intensity) Mood: Euthymic Motor Activity: Normal gait (patient laying in bed) Assessment & Plan Problem List: (1) opiate-induced altered mental status (2) Accidental drug overdose ICD Code: T50.901A Assessment & Plan Estimated LOS: days patient calm cooperative I seen no indication for psychiatric hospitalization under the voluntary or involuntary. Did recommend that she and her father coordinate better monitoring dispensing of her multiple medication that she has at home. They should consult was sent off the present time Discharge Planning See above Request HC Surrog/Guard Advoc?: No Chalino Silva MD Jun 06, 2016 11:45
[2016-06-06] MEDS: ENOXAPARIN SODIUM 40 MG/0.4 ML SYRINGE SQ SCH (14:41)
[2016-06-06] MEDS: cefTRIAXone INJ 1,000 MG in SODIUM CHLORIDE 0.9% INJ 100 ML IV SCH (16:12)
[2016-06-06] MEDS: DEXMEDETOMIDINE INJ 50 ML IV SCH (17:15)
[2016-06-07] VITALS (15 sets, daily range): BP systolic 130–188; BP diastolic 73–103; PULSE 67–129; RESP 16–25; TEMP 97.5–99; O2SAT 96–100
[2016-06-07] MEDS: DEXMEDETOMIDINE INJ 50 ML IV SCH (00:06)
[2016-06-07] MEDS: CHLORHEXIDINE GLUCONATE 2 % 1 PACK (2 CLOTHS) TOP SCH (04:00)
[2016-06-07] MEDS: INSULIN NovoLIN REGULAR SUPPLEMENTAL SCALE SQ SCH ×4 (04:00→22:00)
[2016-06-07] MEDS: RESP: ALBUTEROL 2.5 MG/IPRATROPIUM 0.5 MG NEB (SCH) INH ×4 (04:18→21:17)
[2016-06-07] MEDS ORDERED: POTASSIUM CHLOR 20 MEQ PREMIX 100 ML IV PRN (08:30)
[2016-06-07] MEDS ORDERED: MAGNESIUM OXIDE 400 MG TAB PO PRN (08:30)
[2016-06-07] MEDS ORDERED: POTASSIUM CHLOR 40 MEQ PREMIX 100 ML IV PRN ×2 (08:30)
[2016-06-07] MEDS ORDERED: POTASSIUM CL 40 MEQ/30 ML LIQ UDC PO/TUBE PRN ×2 (08:30)
[2016-06-07] MEDS ORDERED: POTASSIUM PHOSPHATE INJ 30 MMOL in SODIUM CHLOR 0.9% 250 ML INJ 250 ML IV PRN (08:30)
[2016-06-07] MEDS ORDERED: MAGNESIUM SULFATE INJ 2 GM in SODIUM CHLORIDE 0.9% INJ 96 ML IV PRN (08:30)
[2016-06-07] MEDS ORDERED: MAGNESIUM SULFATE INJ 4 GM in SODIUM CHLORIDE 0.9% INJ 92 ML IV PRN (08:30)
[2016-06-07] MEDS ORDERED: POTASSIUM PHOSPHATE MONOBASIC 500 MG TAB PO PRN (08:30)
[2016-06-07] MEDS ORDERED: POTASSIUM PHOSPHATE MONOBASIC 500 MG TAB PO/TUBE PRN (08:30)
[2016-06-07] MEDS ORDERED: SODIUM PHOSPHATE INJ 30 MMOL in SODIUM CHLOR 0.9% 250 ML INJ 240 ML IV PRN (08:30)
--- NOTE | 2016-06-07 08:36 | HHI.CCPN ---
Subjective Remarks/Hospital Course The patient is a 45 year-old female with past medical history of bronchial asthma, anxiety, depression, fibromyalgia, chronic pain syndrome on p.o. Morphine at home in addition to morphine pump. She was brought into the [facility] Emergency Department for lethargy and also for altered mental status. According to the patients father the patient was very lethargic. She came trembling and was getting argumentative. He subsequently called Emergency Medical Services and when the arrived they noticed the patient to be groggy with slurred speech. She was given Narcan IV and subsequently she woke up and improved her o2 saturation and blood pressure as well. When she arrived to the emergency department the patient began lethargic again however, she was answering questions appropriately. She had an o2 saturation of 95% on room air. The patient does have a history of cervical disc problems and she is on pain management. She was given additional dose of Narcan 2 mg IV push which improved her mental status. In the emergency room she was given approximately 1.5 liters of normal saline. Arterial blood gas was preformed on room air which showed likely mixed venous gas with pH of 7.37, co2 58, pa02 53, blood clot 33, saturations 77%. When seen the patient was awake, alert, laying in bed in no acute respiratory distress. She is on four liters of oxygen with saturation of 97%. Her urine drug screen was positive for opiates and benzodiazepines. Due to her initial mental status a CT scan of the brain was obtained which showed no acute intracranial abnormality. Also a chest x-ray was done which showed no evidence of any acute cardiopulmonary disease. No evidence of any fever or leukocytosis. She denies any suicidal ideations. 06/06: Sitting up in bed. No acute distress. No suicidal ideation. Complaints of back pain 06/07 Patient was placed on low dose Precedex drip yesterday for agitation. Awake and alert. Objective Vital Signs Date Time Temp Pulse Resp B/P Pulse Ox O2 Delivery O2 Flow Rate FiO2 06/07/16 06:00 69 06/07/16 04:00 97.5 16 165/89 100 06/06/16 20:46 21 06/06/16 19:00 Room Air 06/06/16 07:00 2.00 Intake and Output 06/06/16 06/06/16 06/07/16 08:00 16:00 00:00 Intake Total 1109 ml 600 ml 227 ml Output Total 800 ml Balance 309 ml 600 ml 227 ml Result Diagram: 06/06/16 0427 06/07/16 0627 Other Results Laboratory Tests Test 06/07/16 06:27 Potassium Level 2.8 MEQ/L Imaging Last Impressions Head CT 06/05/16 1028 Signed Impressions: Service Date/Time: Sunday, June 05, 2016 11:11 - CONCLUSION: No acute intracranial abnormality. Mild sinus disease. Chalino Landeros MD Chest X-Ray 06/05/16 1028 Signed Impressions: Service Date/Time: Sunday, June 05, 2016 10:51 - CONCLUSION: No evidence of acute cardiopulmonary disease. Chalino Landeros MD Objective Remarks PHYSICAL EXAMINATION: IN GENERAL: A 45 year-old female lying in bed in no acute respiratory distress. HEENT: Atraumatic, normocephalic. Pupils equal NECK: Supple, no jugular venous distention CARDIOVASCULAR SYSTEM: Regular rate and rhythm, normal S1, S2, no murmurs, rubs , or gallops. RESPIRATORY: Bilateral equal entry, no rales or wheezing. ABDOMEN: The abdomen is soft, nontender, no distention. Positive bowel sounds. EXTREMITIES: No clubbing, cyanosis or edema. NEUROLOGIC: Awake, alert, no focal deficit. A/P Assessment and Plan ASSESSMENT Altered mental status improved post Narcan Drug overdose with the urine drug screen positive for opiates and benzodiazepines. Urinary tract infection. Chronic pain syndrome. Fibromyalgia. Hypertension. History of bronchial asthma. Anxiety/depression. Plan Neuro: -Wean off Precedex drip. monitor neuro status and avoid sedatives. Hold Trazodone, Gabapentin. -CT brain in ED is negative for acute disease. -Continue Thiamine, Multivitamins. Folic acid given her ethyl alcohol use and monitor for signs of DT's -Psych is following. On Ativan 1mg Q4 PRN agitation Pulm: Continue with oxygen and maintain saturations >92%. Bronchodilators CV: Monitor HR and BP and maintain MAP> 65 mmHg. : Monitor renal function, intake and output and electrolyte replacement per protocol Will need K replacement today GI: On PO diet ID: Continue Rocephin 1 gram IV daily for urinary tract infection. Monitor for signs of infections ( Fever, WBC) Heme: Monitor CBC Endo: SSI if needed for glycemic control -No indications for gastrointestinal prophylaxis. -DVT prophylaxis- Lovenox 40 mg subcutaneous daily. Will sign off and transfer care to [facility] Level 3 Steve Grace MD Jun 07, 2016 08:36
[2016-06-07] MEDS: POTASSIUM CHLOR 20 MEQ PREMIX 100 ML IV PRN (09:08)
[2016-06-07] MEDS: MULTIVITAMIN TAB PO SCH (09:08)
[2016-06-07] MEDS: THIAMINE HCL 100 MG TAB PO SCH (09:08)
[2016-06-07] MEDS: FOLIC ACID 1 MG TAB PO SCH (09:08)
[2016-06-07] MEDS: SODIUM CHLORIDE 0.9% FLUSH 5 ML FLUSH IVF PRN (09:08)
[2016-06-07] MEDS: LORazepam 2 MG/ML VIAL IV PUSH PRN ×4 (09:21→23:17)
[2016-06-07 09:28] LABS: AUTOMATED NEUTROPHIL # 9.5 TH/MM3 (1.8-7.7); BASOPHIL # 0.1 TH/MM3 (0-0.2); BASOPHIL % 1.1 % (0.0-2.0); EOSINOPHIL # 0.1 TH/MM3 (0-0.4); EOSINOPHIL % 0.7 % (0.0-4.0); HEMO FLAGS DIFF FINAL; LYMPH % 13.6 % (9.0-44.0); LYMPHOCYTE # 1.7 TH/MM3 (1.0-4.8); MEAN CELL VOLUME 89.3 FL (80.0-100.0); MEAN CORPUSCULAR HEMOGLOBIN 30.3 PG (27.0-34.0); MEAN CORPUSCULAR HGB CONC 33.9 % (32.0-36.0); MONO % 7.1 % (0.0-8.0); NEUT % 77.5 % (16.0-70.0); PLATELET COUNT 396 TH/MM3 (150-450); WHITE BLOOD COUNT 12.3 TH/MM3 (4.0-11.0)
[2016-06-07 09:50] LABS: ALKALINE PHOSPHATASE 79 U/L (45-117); ALT (GPT) 16 U/L (10-53); ANION GAP 11 MEQ/L (5-15); AST (GOT) 23 U/L (15-37); BICARBONATE 28.8 MEQ/L (21.0-32.0); BLOOD UREA NITROGEN 9 MG/DL (7-18); CHLORIDE 98 MEQ/L (98-107); GLOMERULAR FILTRATION RATE 65 ML/MIN (>89); MAGNESIUM 1.7 MG/DL (1.5-2.5); SODIUM (NA) 138 MEQ/L (136-145); TOTAL BILIRUBIN ADULT 0.6 MG/DL (0.2-1.0)
[2016-06-07 10:03] LABS: POTASSIUM 2.9 MEQ/L (3.5-5.1)
[2016-06-07] MEDS: hydrALAZINE HCL 20 MG/ML VIAL IV PUSH PRN ×2 (10:09→20:37)
[2016-06-07] MEDS: ACETAMINOPHEN 325 MG TAB PO PRN ×2 (10:20→20:37)
[2016-06-07] MEDS ORDERED: ONDANSETRON HCL 4 MG/2 ML VIAL ONE (10:23)
[2016-06-07] MEDS ORDERED: ONDANSETRON HCL 4 MG/2 ML VIAL IV PUSH PRN (13:15)
[2016-06-07] MEDS: ENOXAPARIN SODIUM 40 MG/0.4 ML SYRINGE SQ SCH (13:48)
[2016-06-07] MEDS ORDERED: MORPHINE SULFATE 4 MG/ML INJ IV PUSH ONE (14:45)
[2016-06-07] MEDS ORDERED: DILTIAZEM HCL 25 MG/5 ML VIAL IV ONE (14:45)
[2016-06-07] MEDS: cefTRIAXone INJ 1,000 MG in SODIUM CHLORIDE 0.9% INJ 100 ML IV SCH (15:14)
[2016-06-07] MEDS: DILTIAZEM HCL 60 MG TAB PO SCH ×2 (18:19→20:32)
[2016-06-08] VITALS: PULSE 128
[2016-06-08 00:01] VITALS: BP 141/104; PULSE 128; RESP 26; TEMP 98.6; O2SAT 97
[2016-06-08 02:00] VITALS: PULSE 127
[2016-06-08] MEDS: hydrALAZINE HCL 20 MG/ML VIAL IV PUSH PRN (02:37)
[2016-06-08] MEDS: CHLORHEXIDINE GLUCONATE 2 % 1 PACK (2 CLOTHS) TOP SCH (03:29)
[2016-06-08] MEDS: LORazepam 2 MG/ML VIAL IV PUSH PRN ×2 (03:29→08:12)
[2016-06-08] MEDS: RESP: ALBUTEROL 2.5 MG/IPRATROPIUM 0.5 MG NEB (SCH) INH ×2 (03:49→08:50)
[2016-06-08 04:00] VITALS: BP 127/88; PULSE 122; PULSE 134; RESP 26; TEMP 98.4; O2SAT 100
[2016-06-08] MEDS: INSULIN NovoLIN REGULAR SUPPLEMENTAL SCALE SQ SCH (04:00)
[2016-06-08] MEDS: ACETAMINOPHEN 325 MG TAB PO PRN (05:21)
[2016-06-08 05:42] LABS: AUTOMATED NEUTROPHIL # 17.2 TH/MM3 (1.8-7.7); BASOPHIL # 0.1 TH/MM3 (0-0.2); BASOPHIL % 0.7 % (0.0-2.0); EOSINOPHIL % 0.1 % (0.0-4.0); HEMATOCRIT 42.9 % (35.0-46.0); LYMPH % 10.3 % (9.0-44.0); LYMPHOCYTE # 2.2 TH/MM3 (1.0-4.8); MEAN CELL VOLUME 88.3 FL (80.0-100.0); MEAN CORPUSCULAR HEMOGLOBIN 29.8 PG (27.0-34.0); MEAN CORPUSCULAR HGB CONC 33.7 % (32.0-36.0); MONO % 8.8 % (0.0-8.0); NEUT % 80.1 % (16.0-70.0); PLATELET COUNT 427 TH/MM3 (150-450); RED BLOOD COUNT 4.85 MIL/MM3 (4.00-5.30); RED CELL DISTRIBUTION WIDTH 16.4 % (11.6-17.2); WHITE BLOOD COUNT 21.4 TH/MM3 (4.0-11.0)
[2016-06-08 05:47] LABS: HEMO FLAGS AUTO DIFF
[2016-06-08 06:00] VITALS: PULSE 125
[2016-06-08 06:17] LABS: BICARBONATE 23.8 MEQ/L (21.0-32.0)
[2016-06-08 06:29] LABS: POTASSIUM 2.8 MEQ/L (3.5-5.1)
[2016-06-08 06:59] LABS: BANDS 2 % (0-6); NEUTROPHIL # MANUAL DIFF 18.4 TH/MM3 (1.8-7.7); POLYS (SEG NEUTROPHILS) 84 % (16-70); WBC DIFF SAMPLE 100
[2016-06-08 07:00] LABS: PLATELET ESTIMATE SMEAR NORMAL (NORMAL); PLATELET MORPHOLOGY NORMAL (NORMAL); SCAN/DIFF FINAL DIFF MANUAL
[2016-06-08 08:00] VITALS: BP 153/91; PULSE 119; PULSE 85; RESP 25; TEMP 97.8; O2SAT 100
[2016-06-08] MEDS: THIAMINE HCL 100 MG TAB PO SCH (08:11)
[2016-06-08] MEDS: FOLIC ACID 1 MG TAB PO SCH (08:11)
[2016-06-08] MEDS: MULTIVITAMIN TAB PO SCH (08:11)
[2016-06-08] MEDS: DILTIAZEM HCL 60 MG TAB PO SCH (08:11)
[2016-06-08] MEDS: SODIUM CHLORIDE 0.9% FLUSH 5 ML FLUSH IVF PRN (08:11)
[2016-06-08] MEDS: POTASSIUM CHLOR 20 MEQ PREMIX 100 ML IV PRN (08:16)
--- NOTE | 2016-06-08 11:01 | HHI.DS ---
Discharge Summary Admission Date Jun 05, 2016 at 13:04 Discharge Date: Jun 08, 2016 Admitting Diagnosis altered mental status, opiate overdose, hypoxia (1) Altered mental status ICD Code: R41.82 Diagnosis: Principal (2) Opiate overdose ICD Code: T40.601A Diagnosis: Principal (3) Hypokalemia ICD Code: E87.6 Diagnosis: Principal (4) UTI (urinary tract infection) ICD Code: N39.0 Diagnosis: Principal (5) Chronic low back pain ICD Code: G89.29 Diagnosis: Secondary (6) Hypertension ICD Code: I10 Diagnosis: Secondary Procedures NOne Brief History - From Admission The patient is a 45 year-old female with past medical history of bronchial asthma, anxiety, depression, fibromyalgia, chronic pain syndrome on p.o. Morphine at home in addition to morphine pump. She was brought into the [facility] Emergency Department for lethargy and also for altered mental status. According to the patients father the patient was very lethargic. She came trembling and was getting argumentative. He subsequently called Emergency Medical Services and when the arrived they noticed the patient to be groggy with slurred speech. She was given Narcan IV and subsequently she woke up and improved her o2 saturation and blood pressure as well. When she arrived to the emergency department the patient began lethargic again however, she was answering questions appropriately. She had an o2 saturation of 95% on room air. The patient does have a history of cervical disc problems and she is on pain management. She was given additional dose of Narcan 2 mg IV push which improved her mental status. In the emergency room she was given approximately 1.5 liters of normal saline. Arterial blood gas was preformed on room air which showed likely mixed venous gas with pH of 7.37, co2 58, pa02 53, blood clot 33, saturations 77%. When seen the patient was awake, alert, laying in bed in no acute respiratory distress. She is on four liters of oxygen with saturation of 97%. Her urine drug screen was positive for opiates and benzodiazepines. Due to her initial mental status a CT scan of the brain was obtained which showed no acute intracranial abnormality. Also a chest x-ray was done which showed no evidence of any acute cardiopulmonary disease. No evidence of any fever or leukocytosis. She denies any suicidal ideations. CBC/BMP: 06/08/16 0513 06/08/16 0513 Significant Findings Laboratory Tests Test 06/05/16 06/05/16 06/06/16 06/07/16 11:40 12:03 04:27 06:27 Urine Opiates Screen POS (NEG) Urine Benzodiazepines Screen POS (NEG) Urine Turbidity HAZY (CLEAR) Urine Occult Blood TRACE (NEG) Urine Nitrite POS (NEG) Urine Leukocyte Esterase LARGE (NEG) Urine WBC 77 /hpf (0-5) Urine Bacteria MANY /hpf (NONE) Blood Gas HCO3 33 mmol/L (22-26) Blood Gas Base Excess 7.6 mmol/L (-2-2) Blood Gas Oxygen Saturation 77 % (90-100) Arterial Blood pH 7.37 (7.380-7.420) Arterial Blood Partial 58 mmHg (38-42) Pressure CO2 Arterial Blood Partial 53 mmHG Pressure O2 (61-120) Arterial Blood 5.2 % (0-4) Carboxyhemoglobin Arterial Blood Methemoglobin 2.6 % (0-2) Monocytes (%) (Auto) 8.2 % (0.0-8.0) Eosinophils (%) (Auto) 5.8 % (0.0-4.0) Eosinophils # (Auto) 0.6 TH/MM3 (0-0.4) Potassium Level 3.3 MEQ/L 2.8 MEQ/L (3.5-5.1) (3.5-5.1) Carbon Dioxide Level 33.5 MEQ/L (21.0-32.0) Estimat Glomerular Filtration 67 ML/MIN (>89) Rate Calcium Level 8.4 MG/DL (8.5-10.1) Aspartate Amino Transf 14 U/L (15-37) (AST/SGOT) Total Protein 5.8 GM/DL (6.4-8.2) Albumin 2.8 GM/DL (3.4-5.0) Test 06/07/16 06/08/16 09:20 05:13 White Blood Count 12.3 TH/MM3 21.4 TH/MM3 (4.0-11.0) (4.0-11.0) Neutrophils (%) (Auto) 77.5 % 80.1 % (16.0-70.0) (16.0-70.0) Neutrophils # (Auto) 9.5 TH/MM3 17.2 TH/MM3 (1.8-7.7) (1.8-7.7) Potassium Level 2.9 MEQ/L 2.8 MEQ/L (3.5-5.1) (3.5-5.1) Estimat Glomerular Filtration 65 ML/MIN (>89) 71 ML/MIN (>89) Rate Phosphorus Level 2.4 MG/DL (2.5-4.9) Monocytes (%) (Auto) 8.8 % (0.0-8.0) Monocytes # (Auto) 1.9 TH/MM3 (0-0.9) Neutrophils % (Manual) 84 % (16-70) Lymphocytes % 7 % (9-44) Neutrophils # (Manual) 18.4 TH/MM3 (1.8-7.7) Random Glucose 116 MG/DL (74-106) Transfer Summary The patient is a 45 year-old female with past medical history of bronchial asthma, anxiety, depression, fibromyalgia, chronic pain syndrome on p.o. Morphine at home in addition to morphine pump. She was brought into the [facility] Emergency Department for lethargy and also for altered mental status. According to the patients father the patient was very lethargic. She came trembling and was getting argumentative. He subsequently called Emergency Medical Services and when the arrived they noticed the patient to be groggy with slurred speech. She was given Narcan IV and subsequently she woke up and improved her o2 saturation and blood pressure as well. When she arrived to the emergency department the patient began lethargic again however, she was answering questions appropriately. She had an o2 saturation of 95% on room air. The patient does have a history of cervical disc problems and she is on pain management. She was given additional dose of Narcan 2 mg IV push which improved her mental status. In the emergency room she was given approximately 1.5 liters of normal saline. Arterial blood gas was preformed on room air which showed likely mixed venous gas with pH of 7.37, co2 58, pa02 53, blood clot 33, saturations 77%. When seen the patient was awake, alert, laying in bed in no acute respiratory distress. She is on four liters of oxygen with saturation of 97%. Her urine drug screen was positive for opiates and benzodiazepines. Due to her initial mental status a CT scan of the brain was obtained which showed no acute intracranial abnormality. Also a chest x-ray was done which showed no evidence of any acute cardiopulmonary disease. No evidence of any fever or leukocytosis. She denies any suicidal ideations. 06/06: Sitting up in bed. No acute distress. No suicidal ideation. Complaints of back pain Hospital Course The patient is a 45 year-old female with past medical history of bronchial asthma, anxiety, depression, fibromyalgia, chronic pain syndrome on p.o. Morphine at home in addition to morphine pump. She was brought into the [facility] Emergency Department for lethargy and also for altered mental status. When she arrived to the emergency department the patient began lethargic again however, she was answering questions appropriately. She had an o2 saturation of 95% on room air. T She was given additional dose of Narcan 2 mg IV push which improved her mental status. In the emergency room she was given approximately 1.5 liters of normal saline. Arterial blood gas was preformed on room air which showed likely mixed venous gas with pH of 7.37, co2 58, pa02 53, blood clot 33, saturations 77%. When seen the patient was awake, alert, laying in bed in no acute respiratory distress. She is on four liters of oxygen with saturation of 97%. Her urine drug screen was positive for opiates and benzodiazepines. Due to her initial mental status a CT scan of the brain was obtained which showed no acute intracranial abnormality. Also a chest x-ray was done which showed no evidence of any acute cardiopulmonary disease. No evidence of any fever or leukocytosis. She denies any suicidal ideations. The next day, patient was transferred to the hospitalist service. However before I even saw the patient, patient left her the AGAINST MEDICAL ADVICE. Pt Condition on Discharge: Stable Discharge Disposition: Discharge Home (left AMA) Discharge Time: <= 30 minutes Aileen Stover MD Jun 08, 2016 11:01
[2016-09-22] MEDS ORDERED: BUSP15TA PO (11:42)
[2016-09-22] MEDS ORDERED: TRAZ300T2 PO (11:42)
[2016-09-22] MEDS ORDERED: CYMB60CA PO (11:42)
[2016-09-22] MEDS ORDERED: LIPI40TA PO (11:46)
== END 2016-06-08 10:00 | disposition left against medical advice (07) | DRG 918 ==
LOC: NEPE 10:16 → NEDA 13:04 → HIME 16:45
PROVIDERS: ADMIT Hospitalist; ATTEND Hospitalist
DX: T40.2X1A Poisoning by other opioids, accidental (unintentional), initial encounter (principal); G90.521 Complex regional pain syndrome I of right lower limb; I10 Essential (primary) hypertension; N39.0 Urinary tract infection, site not specified; F32.9 Major depressive disorder, single episode, unspecified; F17.200 Nicotine dependence, unspecified, uncomplicated; R47.81 Slurred speech; Y92.009 Unspecified place in unspecified non-institutional (private) residence as the place of occurrence of the external cause; M19.90 Unspecified osteoarthritis, unspecified site; F41.9 Anxiety disorder, unspecified; M79.7 Fibromyalgia; J45.909 Unspecified asthma, uncomplicated; R09.02 Hypoxemia; R40.1 Stupor; R41.82 Altered mental status, unspecified; R53.83 Other fatigue; G89.4 Chronic pain syndrome; E87.6 Hypokalemia; M54.5 Low back pain
CPT/HCPCS: 36600; 70450; 71010; 76937; 80048; 80053; 80307; 81001; 82140; 82550; 82552; 82805; 82948; 83735; 84100; 84132; 84443; 84484; 85007; 85025; 85027; 85610; 87077; 87086; 87186; 87641; 93005; 94640; 94664; 96361; 96374; 99292; C9399; J0360; J0696; J1650; J2060; J2270; J2310; J2405; J3480; J7030; J7040; J7042; J7050

== ENCOUNTER → 2016-09-22 | Outpatient (CLI) | payer MEDICAID ==
[~2016-09-22] MED LIST changes: +ADVA250A INH; -ADVAI100I INH; -ATOR80TA PO; +BACL10TA PO; +CYMB60CA PO; -DULO30 PO; +LIPI40TA PO; -LISI-363 PO; +LISI-515 PO; -MORP15IN3 IMPLANPUMP; +MORP1INJ IMPLANPUMP; +TEMA30CA PO; -TRAZ100 PO; +TRAZ100T5 PO; +TRAZ300T2 PO
[2016-09-22 11:41] LABS: AUTOMATED NEUTROPHIL # 7.5 TH/MM3 (1.8-7.7); BASOPHIL # 0.1 TH/MM3 (0-0.2); BASOPHIL % 0.6 % (0.0-2.0); EOSINOPHIL # 0.5 TH/MM3 (0-0.4); EOSINOPHIL % 4.8 % (0.0-4.0); HEMATOCRIT 39.8 % (35.0-46.0); HEMO FLAGS DIFF FINAL; LYMPH % 20.6 % (9.0-44.0); LYMPHOCYTE # 2.4 TH/MM3 (1.0-4.8); MEAN CELL VOLUME 86.6 FL (80.0-100.0); MEAN CORPUSCULAR HEMOGLOBIN 28.7 PG (27.0-34.0); MEAN CORPUSCULAR HGB CONC 33.2 % (32.0-36.0); MONO % 7.5 % (0.0-8.0); NEUT % 66.5 % (16.0-70.0); PLATELET COUNT 412 TH/MM3 (150-450); RED CELL DISTRIBUTION WIDTH 15.3 % (11.6-17.2); WHITE BLOOD COUNT 11.4 TH/MM3 (4.0-11.0)
== END ==
LOC: PHPRE 11:20
PROVIDERS: ATTEND Orthopaedic Surgery
DX: M22.41 Chondromalacia patellae, right knee (principal)
CPT/HCPCS: 36415; 85025

== ENCOUNTER 2016-10-01 20:40 | Emergency (ER) | payer MEDICAID ==
[~2016-10-01] VITALS: Ht 157.5 cm; Wt 78.4 kg
[~2016-10-01 20:40] MED LIST changes: -BUPIVACAINE/EPINEPHRINE 0.5% PF 30 ML VIAL ONE; -CHLORHEXIDINE GLUCONATE 2 % 1 PACK (2 CLOTHS) TOPICAL PRN; -CHLORHEXIDINE GLUCONATE 4% SOLN 120 ML BTL TOPICAL SCH; -FAMOTIDINE 20 MG/2 ML VIAL ONE; -HYDROmorphone HCL PF 1 MG/ML VIAL ONE; -INSULIN HUMAN REGULAR 1,000 UNITS/10 ML VIAL SQ PRN; -KETAMINE HCL 500 MG/10 ML VIAL ONE; -LACTATED RINGER'S 1000 ML IV PRN; -METOPROLOL TARTRATE 25 MG TAB PO PRN; -MIDAZOLAM HCL 2 MG/2 ML VIAL ONE; -POVIDONE IODINE 5% (ANTISEPSIS KIT) 4 APPLICATIONS EACH NARE PRN; -PROPOFOL 200 MG/20 ML AMP IV ONE; -SODIUM CHLORID 0.9% 500 ML IV PRN; -TRIAMCINOLONE ACETONIDE 40 MG/ML VIAL ONE; -fentaNYL CITRATE 250 MCG/5 ML AMP IV ONE
[2016-10-01 20:46] VITALS: BP 109/71; PULSE 91; RESP 16; TEMP 97.8; O2SAT 91
--- NOTE | 2016-10-01 21:24 | PD ---
HPI Chief Complaint: Bleeding Time Seen by Provider: 21:00 Travel History International Travel<30 days: No Contact w/Intl Traveler<30days: No Traveled to known affect area: No History of Present Illness HPI This 46-year-old female presents with complaint of bleeding. She had arthroscopy on her right knee today with Dr. Ellison. She was at home and she noted that the bandage is bloody and so she came here. She has been having some pain. There is no fever or chills. She is not on blood thinners PFSH Past Medical History Arthritis: Yes Asthma: Yes Anxiety: Yes Depression: Yes Cancer: No Cardiovascular Problems: Yes (ANGINA, ) Diabetes: No Diminished Hearing: No Endocrine: No Fibromyalgia: Yes Gastrointestinal Disorders: No Genitourinary: Yes (BLADDER SPASMS, ARTIFICIAL RIGHT URETER ) Hepatitis: No Hiatal Hernia: No Hypertension: Yes Immune Disorder: Yes (FIBROMYALGIA) Inguinal Hernia: Yes Implanted Vascular Access Dvce: Yes Musculoskeletal: Yes (FIBROMYALGIA, RSD, ARTHRITIS) Neurologic: Yes (COMPLEX REGIONAL PAIN SYNDROME (RSD) IN R HAND/ARM, NEUROPATHY , MIGRAINES) Psychiatric: Yes (ANXIETY) Reproductive: No Respiratory: Yes (ASTHMA (TRIGGERED BY WEATHER)) Thyroid Disease: No Tetanus Vaccination: Unknown Influenza Vaccination: No ?: Not Past Surgical History Abdominal Surgery: Yes (ABD.L HERNIA REPS X 6, ;,TAI) AICD: No Body Medical Devices: RIGHT URETERAL PSOLIS HITCH, PAIN PUMP Cardiac Surgery: No Section: Yes Ear Surgery: No Endocrine Surgery: No Eye Surgery: No Genitourinary Surgery: Yes (R KIDNEY/ BLADDER RECONSTR. WITH PSOLIS HITCH 2005) Gynecologic Surgery: Yes (C SECTION,HYSTERECTOMY 2004) Hysterectomy: Yes Joint Replacement: No Neurologic Surgery: No Pacemaker: No Thoracic Surgery: No Other Surgery: Yes (KIDNEY SX) Social History Alcohol Use: Yes (2-3 BEER/DAILY) Tobacco Use: Yes (1/2 PPD) Substance Use: No Allergies-Medications (Allergen,Severity, Reaction): Coded Allergies: Hydrocodone (Verified Allergy, Severe, Itching, 10/01/16) IRRITABILITY Simvastatin (Unverified Allergy, Severe, Irritability/Anxiety, 10/01/16) Tramadol (Unverified Allergy, Severe, Irritability/Anxiety, 10/01/16) Zofran (Verified Adverse Reaction, Severe, Headache, 10/01/16) Reported Meds & Prescriptions Reported Meds & Active Scripts Active Reported Lipitor (Atorvastatin Calcium) 40 Mg Tab 40 Mg PO HS Buspirone (Buspirone HCl) 15 Mg Tab 15 Mg PO TID Cymbalta DR (Duloxetine HCl) 60 Mg Capdr 60 Mg PO DAILY Trazodone (Trazodone HCl) 300 Mg Tab 300 Mg PO HS Lisinopril 20 Mg Tab 20 Mg PO BID Gabapentin 600 Mg Tab 600 Mg PO QID Baclofen 10 Mg Tab 10 Mg PO TID PRN Vistaril (Hydroxyzine Pamoate) 25 Mg Cap 25 Mg PO TID Morphine Inj (Morphine Sulfate) 5 Mg/Ml Inj 4.4971 Mg IMPLANPUMP CONTINUOUS Morphine IR (Morphine Sulfate) 15 Mg Tab 15 Mg PO BID PRN Advair Diskus Inh (Fluticasone-Salmeterol Inh) 250-50 Mcg/Blist Aer 1 Puff INH BID Rinse mouth after use. Review of Systems General / Constitutional: No: Fever, Chills Hematologic/Lymphatic: No: Easy Bruising Physical Exam Narrative There is a small surgical scar on the right knee which is sutured. There is some dried blood at the scar. She does come in with a bandage which has a fair amount of blood on it. Wound is not actively bleeding. Data Data Last Documented VS Vital Signs Date Time Temp Pulse Resp B/P Pulse Ox O2 Delivery O2 Flow Rate FiO2 10/01/16 20:46 97.8 91 16 109/71 91 MDM Medical Decision Making Medical Screen Exam Complete: Yes Emergency Medical Condition: Yes Medical Record Reviewed: Yes Differential Diagnosis Differential includes postoperative bleeding Narrative Course At this point this bleeding appears fairly minor and appears to have resolved. A clean bandage has been applied with an Albert bandage for some compression. I recommended she keep her leg elevated. Follow-up with Dr. Molina. Diagnosis Primary Impression: Bleeding Disposition: 01 DISCHARGE HOME Condition: Stable Tolu Larkin MD Oct 01, 2016 21:23
== END 2016-10-01 21:44 | disposition home or self-care (01) ==
LOC: PHED 20:40
DX: L76.22 Postprocedural hemorrhage of skin and subcutaneous tissue following other procedure (principal); M25.561 Pain in right knee; I10 Essential (primary) hypertension
CPT/HCPCS: 99281

== ENCOUNTER → 2016-10-01 | Day surgery (SDC) | payer MEDICAID ==
[~2016-10-01] VITALS: Ht 157.5 cm; Wt 68.0 kg
[~2016-10-01] MED LIST changes: +BUPIVACAINE/EPINEPHRINE 0.5% PF 30 ML VIAL ONE; +CHLORHEXIDINE GLUCONATE 2 % 1 PACK (2 CLOTHS) TOPICAL PRN; +CHLORHEXIDINE GLUCONATE 4% SOLN 120 ML BTL TOPICAL SCH; +FAMOTIDINE 20 MG/2 ML VIAL ONE; +HYDROmorphone HCL PF 1 MG/ML VIAL ONE; +INSULIN HUMAN REGULAR 1,000 UNITS/10 ML VIAL SQ PRN; +KETAMINE HCL 500 MG/10 ML VIAL ONE; +LACTATED RINGER'S 1000 ML IV PRN; +METOPROLOL TARTRATE 25 MG TAB PO PRN; +MIDAZOLAM HCL 2 MG/2 ML VIAL ONE; +POVIDONE IODINE 5% (ANTISEPSIS KIT) 4 APPLICATIONS EACH NARE PRN; +PROPOFOL 200 MG/20 ML AMP IV ONE; +SODIUM CHLORID 0.9% 500 ML IV PRN; -TEMA30CA PO; -TRAZ100T5 PO; +TRIAMCINOLONE ACETONIDE 40 MG/ML VIAL ONE; +fentaNYL CITRATE 250 MCG/5 ML AMP IV ONE
[2016-10-01 10:00] VITALS: BP 114/71; PULSE 97; RESP 18; TEMP 98.3; O2SAT 96
[2016-10-01 14:25] VITALS: BP 120/77; PULSE 87; RESP 16; TEMP 98; O2SAT 98
--- NOTE | 2016-10-03 11:21 | MP ---
cc: VIGNESH RUSSO M.D. DATE OF SURGERY: 10/01/2016 SURGEON: Dr. Vignesh Russo PREOPERATIVE DIAGNOSIS: Osteoarthritis of the right knee joint. POSTOPERATIVE DIAGNOSIS: Osteoarthritis of the right knee joint. OPERATION: Chondroplasty medial compartment and anterior compartment, right knee joint with arthroscopic surgery. DETAILS OF PROCEDURE: The patient was placed in the supine position and the right knee was prepped and draped in usual sterile fashion. An Esmarch bandage was used to exsanguinate the lower extremity and pneumatic tourniquet was inflated to a pressure of 300. An anterolateral portal was used for introduction of the scope and cannula and the joint was distended with lactated Ringer's solution. A systematic examination of the joint revealed severe patellofemoral arthritis with a rather large defect noted with a small portion of it down to subchondral bone, the surrounding synovium was also hypertrophic. The medial compartment revealed similar findings primarily of the medial femoral condyle and the meniscus itself was intact as well as the cruciate ligaments. A chondroplasty of the medial compartment was carried out with the motorized instrumentation and then placed back into the anterior compartment which then completed the chondroplasty of the patella as well as partial synovectomy. The lateral compartment appeared to be satisfactorily preserved. The meniscus was intact. All instruments were removed. After 16 minutes the tourniquet was deflated prior to which we did close the two stab wounds with simple 3-0 nylon suture and injected into the knee joint through the lateral portal 10 cc of 2% lidocaine with epinephrine and 1 cc of Kenalog. Sponge count, needle count and instrument counts were reported correct x2. The estimated blood loss was nil. The patient was transferred to the recovery room in satisfactory condition. Vignesh Russo MD [facility] /12:13 PM /11:19 AM [facility]ITALDonal
== END | disposition home or self-care (01) ==
LOC: PHSDC 09:48
PROVIDERS: ATTEND Orthopaedic Surgery
DX: M22.41 Chondromalacia patellae, right knee (principal); M17.11 Unilateral primary osteoarthritis, right knee; M25.561 Pain in right knee
CPT/HCPCS: 01400; 29877; J1170; J2250; J3010; J3301; J7120

== ENCOUNTER → 2017-02-22 | Outpatient (CLI) | payer MEDICAID ==
[~2017-02-22] MED LIST changes: +HYDR2INJ6 IMPLANT; +HYDROMORPHONE; +QUET1TAB7 PO
[2017-02-22 13:14] LABS: AUTOMATED NEUTROPHIL # 5.6 TH/MM3 (1.8-7.7); BASOPHIL # 0.3 TH/MM3 (0-0.2); BASOPHIL % 2.8 % (0.0-2.0); EOSINOPHIL # 0.5 TH/MM3 (0-0.4); EOSINOPHIL % 5.6 % (0.0-4.0); HEMATOCRIT 38.5 % (35.0-46.0); HEMO FLAGS DIFF FINAL; LYMPH % 22.7 % (9.0-44.0); LYMPHOCYTE # 2.1 TH/MM3 (1.0-4.8); MEAN CELL VOLUME 85.7 FL (80.0-100.0); MEAN CORPUSCULAR HEMOGLOBIN 27.8 PG (27.0-34.0); MEAN CORPUSCULAR HGB CONC 32.5 % (32.0-36.0); MONO % 7.3 % (0.0-8.0); NEUT % 61.6 % (16.0-70.0); PLATELET COUNT 412 TH/MM3 (150-450); RED BLOOD COUNT 4.49 MIL/MM3 (4.00-5.30); RED CELL DISTRIBUTION WIDTH 15.8 % (11.6-17.2); WHITE BLOOD COUNT 9.2 TH/MM3 (4.0-11.0)
== END ==
LOC: PHPRE 12:32
PROVIDERS: ATTEND Orthopaedic Surgery
DX: Z01.812 Encounter for preprocedural laboratory examination (principal)
CPT/HCPCS: 36415; 85025; 85652

== ENCOUNTER → 2017-03-04 | Day surgery (SDC) | payer MEDICAID ==
[~2017-03-04] VITALS: Ht 157.5 cm; Wt 66.0 kg
[~2017-03-04] MED LIST changes: +BUPIVACAINE/EPINEPHRINE 0.5% PF 10 ML VIAL ONE; +CHLORHEXIDINE GLUCONATE 2 % 1 PACK (2 CLOTHS) TOPICAL PRN; +CHLORHEXIDINE GLUCONATE 4% SOLN 120 ML BTL TOPICAL SCH; +DEXAMETHASONE SOD PHOS 4 MG/ML VIAL ONE; +FAMOTIDINE 20 MG/2 ML VIAL ONE; -HYDROMORPHONE; +HYDROmorphone HCL PF 1 MG/ML VIAL ONE; +LACTATED RINGER'S 1000 ML IV PRN; +METOPROLOL TARTRATE 25 MG TAB PO PRN; +MIDAZOLAM HCL 2 MG/2 ML VIAL ONE; -MORP1INJ IMPLANPUMP; +NEOMYCIN/POLYMYXIN 1 ML G.U. IRRIGANT ONE; +POVIDONE IODINE 5% (ANTISEPSIS KIT) 4 APPLICATIONS EACH NARE PRN; +SODIUM CHLORID 0.9% 500 ML IV PRN; +TRIAMCINOLONE ACETONIDE 40 MG/ML VIAL ONE; +VANCOMYCIN 500 MG VIAL ONE; +ceFAZolin INJ 1,000 MG VIAL ONE; +hydrALAZINE HCL 20 MG/ML VIAL ONE
[2017-03-04 11:55] VITALS: PULSE 78
[2017-03-04 14:00] VITALS: BP 125/77; PULSE 97; RESP 16; TEMP 98.6; O2SAT 94
--- NOTE | 2017-03-07 10:00 | MP ---
cc: JOEY RUSSO M.D. DATE OF SURGERY 03/04/[address] Linda Russo PREOPERATIVE DIAGNOSIS Synovitis with possible infected right knee joint. POSTOPERATIVE DIAGNOSIS 1. Synovitis, right knee joint with osteoarthritis/post-traumatic arthritis. 2. Old tear ACL PROCEDURE Arthrotomy of the right knee joint with irrigation and debridement and tissue cultures, total synovectomy. PROCEDURE IN DETAIL The patient was placed on the operating table in the supine position and adequate general anesthesia was administered by the anesthesiologist. The right knee was prepped and draped in usual sterile fashion. Time-out was called and the patient's name, procedure, location, etc., were fully verified and confirmed. An arthrotomy incision was made anteriorly in a longitudinal direction for any possibility of future knee replacement. The wound was extended for approximately 8 inches in length. The wound was taken down through subcutaneous tissues and bleeding points electrocauterized. We did use a tourniquet at 300 mm. The medial retinaculum was identified and a arthrotomy performed at which time we did evacuate immediately a yellow brownish type serosanguineous fluid with no signs of purulence. The incision was extended proximally and distally so as to elevate the patellofemoral joint without dislocating it. We then able to obtain satisfactory visualization of the joint compartment. The medial meniscus appeared to be fragmented and also apparently partially removed. The synovium was obviously inflamed with discoloration. A complete total synovectomy was performed with a specimen sent for cultures of a tissue nature along with the fluid swab which was also carried out prior to administering any IV antibiotics. She then received 1 gram of vancomycin and 2 grams of Ancef. The synovectomy was performed over the entire surface of the knee joint. The articular surface appeared to have some post-traumatic erosion large in size involving the medial femoral condyle, medial tibial plateau. There appeared to be a lesser degree of arthritic changes laterally. There did appear to be some chondromalacia of the patellofemoral joint. A good portion of the suprapatellar pouch was also excised. Some of the infrapatellar fat pad was also excised. The patella was centralized and a 1/2" Desmet drain was placed deep into the wound and brought through to the exterior through a separate stab wound. The retinacular structures were repaired with interrupted [id number] sutures utilizing #1 Vicryl. Subcutaneous tissue was closed with 2-0 running Vicryl. Skin edges were reapproximated with tiago. Xeroform gauze was applied over the wound followed by a bulky dressing reinforced for drainage and finally with 6" Albert bandaging. Tourniquet was deflated. Examination of the toes revealed adequate return of circulation. The irrigation used was routine irrigation and a total of 3 liters were used with pulsatile lavage. The estimated blood loss was less than 50 mL. Sponge count, needle counts and instrument counts were reported correct x2. The patient tolerated the procedure well and went to recovery room in satisfactory condition. MD ARNULFO Holder/ /11:53 AM /10:01 AM
== END | disposition home or self-care (01) ==
LOC: PHSDC 08:32
PROVIDERS: ATTEND Orthopaedic Surgery
DX: M65.861 Other synovitis and tenosynovitis, right lower leg (principal); M17.31 Unilateral post-traumatic osteoarthritis, right knee; M23.91 Unspecified internal derangement of right knee
CPT/HCPCS: 01400; 27334; 87015; 87070; 87102; 87116; 87176; 87205; 87206; J0360; J0690; J1100; J1170; J2250; J3370; J7120; J3301

== ENCOUNTER 2017-04-08 11:36 | Emergency (ER) | payer MEDICAID ==
[~2017-04-08] VITALS: Ht 157.5 cm; Wt 82.0 kg
[~2017-04-08 11:36] MED LIST changes: -BUPIVACAINE/EPINEPHRINE 0.5% PF 10 ML VIAL ONE; -CHLORHEXIDINE GLUCONATE 2 % 1 PACK (2 CLOTHS) TOPICAL PRN; -CHLORHEXIDINE GLUCONATE 4% SOLN 120 ML BTL TOPICAL SCH; -DEXAMETHASONE SOD PHOS 4 MG/ML VIAL ONE; -FAMOTIDINE 20 MG/2 ML VIAL ONE; -HYDROmorphone HCL PF 1 MG/ML VIAL ONE; -LACTATED RINGER'S 1000 ML IV PRN; -METOPROLOL TARTRATE 25 MG TAB PO PRN; -MIDAZOLAM HCL 2 MG/2 ML VIAL ONE; -NEOMYCIN/POLYMYXIN 1 ML G.U. IRRIGANT ONE; -POVIDONE IODINE 5% (ANTISEPSIS KIT) 4 APPLICATIONS EACH NARE PRN; -SODIUM CHLORID 0.9% 500 ML IV PRN; -TRIAMCINOLONE ACETONIDE 40 MG/ML VIAL ONE; -VANCOMYCIN 500 MG VIAL ONE; -ceFAZolin INJ 1,000 MG VIAL ONE; -hydrALAZINE HCL 20 MG/ML VIAL ONE
[2017-04-08 11:42] VITALS: BP 150/76; PULSE 111; RESP 16; TEMP 98.8; O2SAT 94
[2017-04-08 12:21] VITALS: O2SAT 98
[2017-04-08 12:26] LABS: AUTOMATED NEUTROPHIL # 7.2 TH/MM3 (1.8-7.7); BASOPHIL # 0.1 TH/MM3 (0-0.2); BASOPHIL % 0.6 % (0.0-2.0); EOSINOPHIL # 0.3 TH/MM3 (0-0.4); EOSINOPHIL % 3.2 % (0.0-4.0); HEMATOCRIT 34.6 % (35.0-46.0); HEMOGLOBIN 11.4 GM/DL (11.6-15.3); LYMPHOCYTE # 1.6 TH/MM3 (1.0-4.8); MEAN CELL VOLUME 83.8 FL (80.0-100.0); MEAN CORPUSCULAR HEMOGLOBIN 27.8 PG (27.0-34.0); MEAN CORPUSCULAR HGB CONC 33.1 % (32.0-36.0); MEAN PLATELET VOLUME 6.9 FL (7.0-11.0); MONO % 4.9 % (0.0-8.0); MONOCYTE # 0.5 TH/MM3 (0-0.9); NEUT % 75.3 % (16.0-70.0); PLATELET COUNT 399 TH/MM3 (150-450); RED BLOOD COUNT 4.12 MIL/MM3 (4.00-5.30); RED CELL DISTRIBUTION WIDTH 15.3 % (11.6-17.2); WHITE BLOOD COUNT 9.7 TH/MM3 (4.0-11.0)
--- NOTE | 2017-04-08 12:37 | PD ---
HPI Chief Complaint: Edema Time Seen by Provider: 11:54 Travel History International Travel<30 days: No Contact w/Intl Traveler<30days: No Traveled to known affect area: No History of Present Illness HPI 46 y/o female presents with swelling to her bilateral lower legs over the past couple weeks. She went to her primary care physician yesterday and was told to come here to have an ultrasound of her legs. She states she follows with pain management and is on a Dilaudid pump. She denies taking any of her other home pain medications today. She states that recently increased her pain pump. She denies other concurrent complaints other than feeling tired. Severity is moderate. Quality is swollen. Duration is couple of weeks. She denies specific modifying factors. PFSH Past Medical History Arthritis: Yes Asthma: Yes Anxiety: Yes Depression: Yes Cancer: No Cardiovascular Problems: Yes (ANGINA, ) Diabetes: No Diminished Hearing: No Endocrine: No Fibromyalgia: Yes Gastrointestinal Disorders: No Genitourinary: Yes (BLADDER SPASMS, ARTIFICIAL RIGHT URETER ) Hepatitis: No Hiatal Hernia: No Hypertension: Yes Immune Disorder: Yes (FIBROMYALGIA) Inguinal Hernia: Yes Implanted Vascular Access Dvce: Yes Musculoskeletal: Yes (FIBROMYALGIA, RSD, ARTHRITIS) Neurologic: Yes (COMPLEX REGIONAL PAIN SYNDROME (RSD) IN R HAND/ARM, NEUROPATHY , MIGRAINES) Psychiatric: Yes (ANXIETY) Reproductive: No Respiratory: Yes (ASTHMA (TRIGGERED BY WEATHER)) Thyroid Disease: No Influenza Vaccination: No ?: Not Past Surgical History Abdominal Surgery: Yes (ABD.L HERNIA REPS X 6, ;,TAI) AICD: No Body Medical Devices: RIGHT URETERAL PSOLIS HITCH, PAIN PUMP Cardiac Surgery: No Section: Yes Ear Surgery: No Endocrine Surgery: No Eye Surgery: No Genitourinary Surgery: Yes (R KIDNEY/ BLADDER RECONSTR. WITH PSOLIS HITCH 2005) Gynecologic Surgery: Yes Hysterectomy: Yes Joint Replacement: No Neurologic Surgery: No Pacemaker: No Thoracic Surgery: No Other Surgery: Yes (KIDNEY SX) Social History Alcohol Use: Yes (DENIES) Tobacco Use: Yes (2 PPD) Substance Use: No Allergies-Medications (Allergen,Severity, Reaction): Coded Allergies: hydrocodone (Unverified Allergy, Severe, Itching, 04/08/17) IRRITABILITY simvastatin (Unverified Allergy, Severe, Irritability/Anxiety, 04/08/17) tramadol (Unverified Allergy, Severe, Irritability/Anxiety, 04/08/17) ondansetron (Unverified Adverse Reaction, Severe, Headache, 04/08/17) Reported Meds & Prescriptions Reported Meds & Active Scripts Active Reported Hydromorphone Dosette (Hydromorphone HCl) 2 Mg/Ml Inj 2 Mg IMPLANT DAILY Quetiapine (Quetiapine Fumarate) 25 Mg Tab 25 Mg PO DAILY Lipitor (Atorvastatin Calcium) 40 Mg Tab 40 Mg PO HS Buspirone (Buspirone HCl) 15 Mg Tab 15 Mg PO TID Cymbalta DR (Duloxetine HCl) 60 Mg Capdr 60 Mg PO DAILY Trazodone (Trazodone HCl) 300 Mg Tab 300 Mg PO HS Lisinopril 20 Mg Tab 20 Mg PO BID Gabapentin 600 Mg Tab 600 Mg PO QID Baclofen 10 Mg Tab 10 Mg PO TID PRN Vistaril (Hydroxyzine Pamoate) 25 Mg Cap 25 Mg PO TID Morphine IR (Morphine Sulfate) 15 Mg Tab 15 Mg PO BID PRN Advair Diskus Inh (Fluticasone-Salmeterol Inh) 250-50 Mcg/Blist Aer 1 Puff INH BID Rinse mouth after use. Review of Systems Except as stated in HPI: all other systems reviewed are Neg Physical Exam Narrative GENERAL: Well-nourished, well-developed patient. SKIN: Warm and dry. HEAD: Normocephalic and atraumatic. EYES: No injection or drainage. Pinpoint pupils ENT: No nasal drainage noted. NECK: Supple, trachea midline. CARDIOVASCULAR: Regular rate and rhythm RESPIRATORY: No increased effort. No accessory muscle use. GASTROINTESTINAL: Abdomen soft, non-tender, nondistended. EXTREMITIES: No specific calf or joint pain, neurovascularly intact, compartments soft. Moderate swelling noted to bilateral lower extremities, postop wound to right knee has small amount of drainage noted NEUROLOGICAL: Awake. Motor and sensory grossly within normal limits. Normal speech. Data Data Last Documented VS Vital Signs Date Time Temp Pulse Resp B/P (MAP) Pulse Ox O2 Delivery O2 Flow Rate FiO2 04/08/17 13:45 95 16 105/70 (82) 98 Room Air 04/08/17 11:42 98.8 Orders Orders Us Leg Venous Doppler Bilat (04/08/17 11:57) Complete Blood Count With Diff (04/08/17 12:06) Basic Metabolic Panel (Bmp) (04/08/17 12:06) Act Partial Throm Time (Ptt) (04/08/17 12:06) Prothrombin Time / Inr (Pt) (04/08/17 12:06) Iv Access Insert/Monitor (04/08/17 12:06) Ecg Monitoring (04/08/17 12:06) Oximetry (04/08/17 12:06) Blood Glucose (04/08/17 13:00) Ed Discharge Order (04/08/17 13:36) Labs Laboratory Tests Test 04/08/17 12:15 White Blood Count 9.7 TH/MM3 Red Blood Count 4.12 MIL/MM3 Hemoglobin 11.4 GM/DL Hematocrit 34.6 % Mean Corpuscular Volume 83.8 FL Mean Corpuscular Hemoglobin 27.8 PG Mean Corpuscular Hemoglobin Concent 33.1 % Red Cell Distribution Width 15.3 % Platelet Count 399 TH/MM3 Mean Platelet Volume 6.9 FL Neutrophils (%) (Auto) 75.3 % Lymphocytes (%) (Auto) 16.0 % Monocytes (%) (Auto) 4.9 % Eosinophils (%) (Auto) 3.2 % Basophils (%) (Auto) 0.6 % Neutrophils # (Auto) 7.2 TH/MM3 Lymphocytes # (Auto) 1.6 TH/MM3 Monocytes # (Auto) 0.5 TH/MM3 Eosinophils # (Auto) 0.3 TH/MM3 Basophils # (Auto) 0.1 TH/MM3 CBC Comment DIFF FINAL Differential Comment Prothrombin Time 10.0 SEC Prothromb Time International Ratio 1.0 RATIO Activated Partial Thromboplast Time 30.1 SEC Blood Urea Nitrogen 7 MG/DL Creatinine 0.96 MG/DL Random Glucose 264 MG/DL Calcium Level 8.5 MG/DL Sodium Level 136 MEQ/L Potassium Level 4.2 MEQ/L Chloride Level 98 MEQ/L Carbon Dioxide Level 30.5 MEQ/L Anion Gap 8 MEQ/L Estimat Glomerular Filtration Rate 63 ML/MIN MDM Medical Decision Making Medical Screen Exam Complete: Yes Emergency Medical Condition: Yes Medical Record Reviewed: Yes (past history confirmed) Interpretation(s) CBC & BMP Diagram 04/08/17 12:15 Calcium Level 8.5 accucheck 223 Last 24 hours Impressions Lower Extremity Ultrasound 04/08/17 3637 Signed Impressions: Service Date/Time: Saturday, April 08, 2017 12:37 - CONCLUSION: 1. No sonographic evidence for lower extremity DVT. Red Frank MD Differential Diagnosis DVT, arthritis, renal failure Narrative Course Will check blood work, Doppler ultrasound and reevaluate ultrasound without dvt, patient has no white count or fever, patient has normal renal function, patient without chest pain or shortness of breath. Patient agrees to further workup of leg edema as an outpatient. Incidentally patient found to have glucose of 264 which was confirmed with Accu-Chek of 223. Patient states she finished course of steroids a week ago but is not a diabetic. I advised her to monitor sugars in her diet and have this repeated through her primary. She is in agreement to this plan. Given return instructions. Diagnosis Primary Impression: Leg edema Additional Impression: Hyperglycemia Additional Instructions: follow diabetic diet, have sugar checked with primary, elevate legs at rest, return as needed, follow with primary tuesday Med/Other Pt SpecificInfo: No Change to Meds Disposition: 01 DISCHARGE HOME Condition: Stable Herlinda Teague MD Apr 08, 2017 12:37
[2017-04-08 12:52] LABS: BICARBONATE 30.5 MEQ/L (21.0-32.0); CALCIUM 8.5 MG/DL (8.5-10.1); CREATININE 0.96 MG/DL (0.50-1.00)
--- NOTE | 2017-04-08 13:29 | RADRPT ---
EXAM DATE/TIME: 04/08/2017 12:37 [facility] COMPARISON: No previous studies available for comparison. INDICATIONS : Bilateral lower extremity edema. MEDICAL HISTORY : Neuropathy. Migriane. Angina. Asthma. Endometriosis. Renal insufficiency. Fibromyalgia. Arthritis. SURGICAL HISTORY : Hysterectomy. section. Adenoidectomy. Hernia repair x 6. Artificial right ureter. Left knee s urgery. ENCOUNTER: Initial ACUITY: 2 months PAIN SCORE: 0/10 LOCATION: Bilateral legs. TECHNIQUE: Venous ultrasound of the left and right leg was performed from the inguinal ligament to the proximal calf. Real-time, color Doppler and spectral tracing, compression and augmentation techniques were us ed. FINDINGS: RIGHT LEG: There is normal compressibility of the deep venous system from the inguinal region to the proximal ca lf. No echogenic clot is seen in the lumen of the common femoral, femoral, popliteal, and posterior tibial veins. There is a normal response of the venous system to proximal and distal augmentation an d respiration. LEFT LEG: There is normal compressibility of the deep venous system from the inguinal region to the proximal ca lf. No echogenic clot is seen in the lumen of the common femoral, femoral, popliteal, and posterior tibial veins. There is a normal response of the venous system to proximal and distal augmentation an d respiration. CONCLUSION: 1. No sonographic evidence for lower extremity DVT. Red Frank MD on April 08, 2017 at 13:26 Board Certified Radiologist. This report was verified electronically.
[2017-04-08 13:45] VITALS: BP 105/70; PULSE 95; RESP 16; O2SAT 98
== END 2017-04-08 13:56 | disposition home or self-care (01) ==
LOC: PHED 11:36
DX: R60.0 Localized edema (principal); R73.9 Hyperglycemia, unspecified; M19.90 Unspecified osteoarthritis, unspecified site; J45.909 Unspecified asthma, uncomplicated; F41.9 Anxiety disorder, unspecified; M79.7 Fibromyalgia; I10 Essential (primary) hypertension; G62.9 Polyneuropathy, unspecified; F32.9 Major depressive disorder, single episode, unspecified
CPT/HCPCS: 80048; 85025; 85610; 85730; 93970; 99284

== ENCOUNTER 2017-05-06 09:10 | Inpatient (IN) | payer MEDICAID ==
[~2017-05-06] VITALS: Ht 157.5 cm; Wt 82.9 kg
[2017-05-06] MEDS ORDERED: IBUP1TAB5 PO (09:27)
[2017-05-06] MEDS ORDERED: methylPREDNISolone SOD SUCC 125 MG/2 ML VIAL IV PUSH ONE (09:30)
[2017-05-06] MEDS ORDERED: SODIUM CHLORIDE 0.9% FLUSH 10 ML FLUSH IVF PRN (09:30)
[2017-05-06] MEDS: RESP: ALBUTEROL 2.5 MG/IPRATROPIUM 0.5 MG NEB (SCH) INH ×2 (09:52→09:53)
[2017-05-06 10:05] LABS: AUTOMATED NEUTROPHIL # 4.5 TH/MM3 (1.8-7.7); BASOPHIL # 0.3 TH/MM3 (0-0.2); BASOPHIL % 4.5 % (0.0-2.0); EOSINOPHIL % 0.3 % (0.0-4.0); HEMATOCRIT 40.1 % (35.0-46.0); HEMOGLOBIN 12.3 GM/DL (11.6-15.3); LYMPH % 17.9 % (9.0-44.0); LYMPHOCYTE # 1.3 TH/MM3 (1.0-4.8); MEAN CELL VOLUME 84.2 FL (80.0-100.0); MEAN CORPUSCULAR HEMOGLOBIN 25.8 PG (27.0-34.0); MEAN CORPUSCULAR HGB CONC 30.6 % (32.0-36.0); MEAN PLATELET VOLUME 7.8 FL (7.0-11.0); MONO % 14.1 % (0.0-8.0); NEUT % 63.2 % (16.0-70.0); PLATELET COUNT 316 TH/MM3 (150-450); RED BLOOD COUNT 4.76 MIL/MM3 (4.00-5.30); RED CELL DISTRIBUTION WIDTH 17.2 % (11.6-17.2); WHITE BLOOD COUNT 7.1 TH/MM3 (4.0-11.0)
--- NOTE | 2017-05-06 10:05 | PD ---
HPI Chief Complaint: Respiratory Symptoms Time Seen by Provider: 09:26 Travel History International Travel<30 days: No Contact w/Intl Traveler<30days: No Traveled to known affect area: No History of Present Illness HPI 46-year-old female presents with cough, congestion and wheezing since this morning. She states she is working on moving back to [place] but is down here packing up stuff. She denies any other concurrent complaints. She states she only has Advair in terms of an inhaler to use. She states she feels worse when she moves around. She denies other modifying factors. Quality is wheezing. Severity is progressive per patient. Duration is couple of hours. 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 WITH PSOLIS HITCH 2005) Gynecologic Surgery: Yes Hysterectomy: Yes Joint Replacement: No Neurologic Surgery: No Pacemaker: No Thoracic Surgery: No Other Surgery: Yes (KIDNEY SX) Social History Alcohol Use: Yes (DENIES) Tobacco Use: Yes (2 PPD) Substance Use: No Allergies-Medications (Allergen,Severity, Reaction): Coded Allergies: hydrocodone (Verified Allergy, Severe, Itching, 05/06/17) IRRITABILITY simvastatin (Verified Allergy, Severe, Irritability/Anxiety, 05/06/17) tramadol (Verified Allergy, Severe, Irritability/Anxiety, 05/06/17) ondansetron (Verified Adverse Reaction, Severe, Headache, 05/06/17) Reported Meds & Prescriptions Reported Meds & Active Scripts Active Reported Ibuprofen 400 Mg Tab 400 Mg PO Q8H PRN Hydromorphone Dosette (Hydromorphone HCl) 2 Mg/Ml Inj 2 Mg IMPLANT DAILY Quetiapine (Quetiapine Fumarate) 25 Mg Tab 25 Mg PO DAILY Lipitor (Atorvastatin Calcium) 40 Mg Tab 40 Mg PO HS Buspirone (Buspirone HCl) 15 Mg Tab 15 Mg PO TID Cymbalta DR (Duloxetine HCl) 60 Mg Capdr 60 Mg PO DAILY Trazodone (Trazodone HCl) 300 Mg Tab 300 Mg PO HS Lisinopril 20 Mg Tab 20 Mg PO BID Gabapentin 600 Mg Tab 600 Mg PO QID Baclofen 10 Mg Tab 10 Mg PO TID PRN Vistaril (Hydroxyzine Pamoate) 25 Mg Cap 25 Mg PO TID Morphine IR (Morphine Sulfate) 15 Mg Tab 15 Mg PO BID PRN Advair Diskus Inh (Fluticasone-Salmeterol Inh) 250-50 Mcg/Blist Aer 1 Puff INH BID Rinse mouth after use. Review of Systems Except as stated in HPI: all other systems reviewed are Neg Physical Exam Narrative GENERAL: Well-nourished, well-developed patient. SKIN: Warm and dry. HEAD: Normocephalic and atraumatic. EYES: No injection or drainage. ENT: No nasal drainage noted. NECK: Supple, trachea midline. CARDIOVASCULAR: Regular rate and rhythm RESPIRATORY: Decreased aeration with expiratory wheezing bilaterally. No accessory muscle use. GASTROINTESTINAL: Abdomen nondistended. EXTREMITIES: No edema. NEUROLOGICAL: Awake and alert. Moves all extremities and sensory grossly within normal limits. Normal speech. Data Data Last Documented VS Vital Signs Date Time Temp Pulse Resp B/P (MAP) Pulse Ox O2 Delivery O2 Flow Rate FiO2 05/06/17 10:42 Room Air 05/06/17 09:20 96 2.00 Orders Orders Complete Blood Count With Diff (05/06/17 09:30) Comprehensive Metabolic Panel (05/06/17 09:30) Chest, Pa & Lat (05/06/17 09:30) Ecg Monitoring (05/06/17 09:30) Iv Access Insert/Monitor (05/06/17 09:30) Oximetry (05/06/17 09:30) Methylprednisolone So Succ Inj (Solumedr (05/06/17 09:30) Albuterol-Ipratropium Neb (Duoneb Neb) (05/06/17 09:30) Sodium Chloride 0.9% Flush (Ns Flush) (05/06/17 09:30) Influenzae A/B Antigen (05/06/17 09:30) Admit Order (Ed Use Only) (05/06/17 11:24) Admit To Inpatient (05/06/17 ) Vital Signs (Adult) Q4H (05/06/17 11:24) Diet Regular Basic (05/06/17 Lunch) Sodium Chloride 0.9% Flush (Ns Flush) (05/06/17 21:00) Sodium Chloride 0.9% Flush (Ns Flush) (05/06/17 11:30) Albuterol-Ipratropium Neb (Duoneb Neb) (05/06/17 14:00) Albuterol-Ipratropium Neb (Duoneb Neb) (05/06/17 11:30) Methylprednisolone So Succ Inj (Solumedr (05/06/17 11:30) Resp Oxygen Parag C Titrat 1-4 L (05/06/17 ) Lisinopril (Prinivil) (05/06/17 21:00) Quetiapine (Seroquel) (05/07/17 09:00) (Nf) Fluticasone-Salmeterol Inh (Advair (05/06/17 21:00) Labs Laboratory Tests Test 05/06/17 09:53 White Blood Count 7.1 TH/MM3 Red Blood Count 4.76 MIL/MM3 Hemoglobin 12.3 GM/DL Hematocrit 40.1 % Mean Corpuscular Volume 84.2 FL Mean Corpuscular Hemoglobin 25.8 PG Mean Corpuscular Hemoglobin Concent 30.6 % Red Cell Distribution Width 17.2 % Platelet Count 316 TH/MM3 Mean Platelet Volume 7.8 FL Neutrophils (%) (Auto) 63.2 % Lymphocytes (%) (Auto) 17.9 % Monocytes (%) (Auto) 14.1 % Eosinophils (%) (Auto) 0.3 % Basophils (%) (Auto) 4.5 % Neutrophils # (Auto) 4.5 TH/MM3 Lymphocytes # (Auto) 1.3 TH/MM3 Monocytes # (Auto) 1.0 TH/MM3 Eosinophils # (Auto) 0.0 TH/MM3 Basophils # (Auto) 0.3 TH/MM3 CBC Comment DIFF FINAL Differential Comment Blood Urea Nitrogen 16 MG/DL Creatinine 1.00 MG/DL Random Glucose 116 MG/DL Total Protein 7.8 GM/DL Albumin 3.3 GM/DL Calcium Level 8.5 MG/DL Alkaline Phosphatase 106 U/L Aspartate Amino Transf (AST/SGOT) 67 U/L Alanine Aminotransferase (ALT/SGPT) 26 U/L Total Bilirubin 0.3 MG/DL Sodium Level 135 MEQ/L Potassium Level 3.7 MEQ/L Chloride Level 95 MEQ/L Carbon Dioxide Level 31.7 MEQ/L Anion Gap 8 MEQ/L Estimat Glomerular Filtration Rate 60 ML/MIN MDM Medical Decision Making Medical Screen Exam Complete: Yes Emergency Medical Condition: Yes Medical Record Reviewed: Yes (past history confirmed) Interpretation(s) CBC & BMP Diagram 05/06/17 09:53 Total Protein 7.8, Albumin 3.3 L, Calcium Level 8.5, Alkaline Phosphatase 106, Aspartate Amino Transf (AST/SGOT) 67 H, Alanine Aminotransferase (ALT/SGPT) 26, Total Bilirubin 0.3 Last 24 hours Impressions Chest X-Ray 05/06/17 0930 Signed Impressions: Service Date/Time: Saturday, May 06, 2017 09:49 - CONCLUSION: No acute disease. No significant change has occurred. Jr Marrero MD Differential Diagnosis Pneumonia, URI, asthma exacerbation Narrative Course Will check blood work, influenza, chest x-ray and dose with DuoNeb's and Solu- Medrol and reevaluate Patient states she feels better and wants to go home, will take off oxygen and see how she does Patient on room air is 86%. She understands that she needs to stay in the hospital for further care and agrees to observation. Physician Communication Physician Communication dr harden agrees to admit Diagnosis Primary Impression: Asthma exacerbation Qualified Codes: J45.901 - Unspecified asthma with (acute) exacerbation Herlinda Teague MD May 06, 2017 10:04
--- NOTE | 2017-05-06 10:05 | RADRPT ---
EXAM DATE/TIME: 05/06/2017 09:49 [facility] COMPARISON: CHEST SINGLE AP, June 05, 2016, 10:51. INDICATIONS : Cough, congestion, wheezing. MEDICAL HISTORY : Hypertension. Asthma SURGICAL HISTORY : None. ENCOUNTER: Initial ACUITY: 2 days PAIN SCORE: 0/10 LOCATION: Bilateral chest FINDINGS: PA and lateral views of the chest demonstrate the lungs to be symmetrically aerated without evidence of mass, infiltrate or effusion. The cardiomediastinal contours are unremarkable. Osseous structure s are intact. CONCLUSION: No acute disease. No significant change has occurred. Jr Marrero MD on May 06, 2017 at 10:02 Board Certified Radiologist. This report was verified electronically.
[2017-05-06 10:16] LABS: CHLORIDE 95 MEQ/L (98-107); SODIUM (NA) 135 MEQ/L (136-145)
[2017-05-06 10:18] LABS: ALBUMIN 3.3 GM/DL (3.4-5.0); BICARBONATE 31.7 MEQ/L (21.0-32.0); BLOOD UREA NITROGEN 16 MG/DL (7-18); CALCIUM 8.5 MG/DL (8.5-10.1); GLUCOSE,RANDOM 116 MG/DL (74-106)
[2017-05-06 10:22] LABS: ALT (GPT) 26 U/L (10-53); AST (GOT) 67 U/L (15-37); GLOMERULAR FILTRATION RATE 60 ML/MIN (>89)
[2017-05-06 10:23] LABS: TOTAL PROTEIN 7.8 GM/DL (6.4-8.2)
[2017-05-06 10:24] LABS: ALKALINE PHOSPHATASE 106 U/L (45-117)
[2017-05-06 10:30] LABS: TOTAL BILIRUBIN ADULT 0.3 MG/DL (0.2-1.0)
[2017-05-06 11:25] VITALS: BP 118/66; PULSE 83; RESP 18; O2SAT 96
[2017-05-06] MEDS ORDERED: RESP: ALBUTEROL 2.5 MG/IPRATROPIUM 0.5 MG NEB (PRN) NEB (11:30)
[2017-05-06] MEDS ORDERED: SODIUM CHLORIDE 0.9% FLUSH 10 ML FLUSH IV FLUSH PRN (11:30)
--- NOTE | 2017-05-06 12:55 | EKG ---
Date Performed: 05/06/2017 Time Performed: 09:19:05 PTAGE: 46 years EKG: Sinus rhythm NORMAL ECG No significant change from prior electrocardiogram. PREVIOUS TRACING : 06/05/2016 10.32 DOCTOR: David Melgoza Interpretating Date/Time 05/06/2017 12:55:05
[2017-05-06 13:45] VITALS: BP 111/77; PULSE 82; RESP 16; TEMP 97.3; O2SAT 97
--- NOTE | 2017-05-06 14:28 | HHI.HP ---
[facility] Lani Conklin MD Admission Diagnosis asthma exacerbation Diagnoses: Chief Complaint: sob Travel History International Travel<30 Days: No Contact w/Intl Traveler <30 Da: No Traveled to Known Affected Are: No History of Present Illness Patient's 46-year-old female with a history of asthma and chronic tobacco dependency. She also has chronic pain disorder and is on Dilaudid by pain pump , morphine, Cymbalta, gabapentin. She has come to the hospital complaining of increased shortness of breath and increased work of breathing over the last couple of days. She does not have a nebulizer rescue inhaler at home. She recently relocated here from [place] and noted that she was having these symptoms so she came to the emergency room. She was hypoxemic at 86% on room air after nebulized treatments. Steroids were given and the patient still was short of breath with tight lung sounds and significant wheezing. She was recommended for admission to the hospital due to respiratory failure secondary to asthma exacerbation Review of Systems Constitutional: DENIES: Diaphoretic episodes, Fatigue, Fever, Weight gain, Weight loss, Chills, Dizziness, Change in appetite, Night Sweats Endocrine: DENIES: Abnorml menstrual pattern, Heat/cold intolerance, Polydipsia , Polyuria, Polyphagia Eyes: DENIES: Blurred vision, Diplopia, Eye inflammation, Eye pain, Vision loss , Photosensitivity, Double Vision Ears, nose, mouth, throat: DENIES: Tinnitus, Hearing loss, Vertigo, Nasal discharge, Oral lesions, Throat pain, Hoarseness, Ear Pain, Running Nose, Epistaxis, Sinus Pain, Toothache, Odynophagia Respiratory: COMPLAINS OF: Wheezing, Sputum production, Shortness of breath, DENIES: Apneas, Cough, Snoring, Hemoptysis Cardiovascular: COMPLAINS OF: Dyspnea on Exertion, DENIES: Chest pain, Palpitations, Syncope, PND, Lower Extremity Edema, Orthopnea, Claudication Gastrointestinal: DENIES: Abdominal pain, Black stools, Bloody stools, Constipation, Diarrhea, Nausea, Vomiting, Difficulty Swallowing, Anorexia Genitourinary: DENIES: Abnormal vaginal bleeding, Dysmenorrhea, Dyspareunia, Sexual dysfunction, Urinary frequency, Urinary incontinence, Urgency, Hematuria , Dysuria, Nocturia, Vaginal discharge Musculoskeletal: DENIES: Joint pain, Muscle aches, Stiffness, Joint Swelling, Back pain, Neck pain Integumentary: DENIES: Abnormal pigmentation, Pruritus, Rash, Nail changes, Breast masses, Breast skin changes, Nipple discharge Hematologic/lymphatic: DENIES: Bruising, Lymphadenopathy Immunologic/allergic: DENIES: Eczema, Urticaria Neurologic: DENIES: Abnormal gait, Headache, Localized weakness, Paresthesias, Seizures, Speech Problems, Tremor, Poor Balance Psychiatric: DENIES: Anxiety, Confusion, Mood changes, Depression, Hallucinations, Agitation, Suicidal Ideation, Homicidal Ideation, Delusions Except as stated in HPI: all other systems reviewed are Neg Past Family Social History Past Medical History Asthma Chronic pain Anxiety and depression Past Surgical History Abdominal hernia , total abdominal hysterectomy Ureteral psoas hitch On Dilaudid pain pump insertion Bladder reconstruction Reported Medications Reviewed in the EMR Allergies: Coded Allergies: hydrocodone (Verified Allergy, Severe, Itching, 05/06/17) IRRITABILITY simvastatin (Verified Allergy, Severe, Irritability/Anxiety, 05/06/17) tramadol (Verified Allergy, Severe, Irritability/Anxiety, 05/06/17) ondansetron (Verified Adverse Reaction, Severe, Headache, 05/06/17) Active Ordered Medications Reviewed in the EMR, polypharmacy discussed with patient Family History Mother had hypertension Social History Moving back to [place] next week Tobacco pack per day for over 20 years No alcohol dependency Recently from her Physical Exam Vital Signs Vital Signs Date Time Temp Pulse Resp B/P (MAP) Pulse Ox O2 Delivery O2 Flow Rate FiO2 05/06/17 13:45 97.3 82 16 111/77 (88) 97 05/06/17 13:30 05/06/17 11:25 83 18 118/66 (83) 96 Nasal Cannula 2.00 05/06/17 11:25 18 96 Nasal Cannula 2.00 05/06/17 10:42 Room Air 05/06/17 09:20 96 Nasal Cannula 2.00 Physical Exam GENERAL: This is a well-nourished, well-developed patient, in no apparent distress. SKIN: No rashes, ecchymoses or lesions. Cool and dry. HEAD: Atraumatic. Normocephalic. No temporal or scalp tenderness. EYES: Pupils equal round and reactive. Extraocular motions intact. No scleral icterus. No injection or drainage. ENT: Nose without bleeding, purulent drainage or septal hematoma. Throat without erythema, tonsillar hypertrophy or exudate. Uvula midline. Airway patent. NECK: Trachea midline. No JVD or lymphadenopathy. Supple, nontender, no meningeal signs. CARDIOVASCULAR: Regular rate and rhythm without murmurs, gallops, or rubs. RESPIRATORY: Bilateral scattered wheezes GASTROINTESTINAL: Abdomen soft, non-tender, nondistended. No hepato-splenomegaly , or palpable masses. No guarding. MUSCULOSKELETAL: Extremities without clubbing, cyanosis, or edema. No joint tenderness, effusion, or edema noted. No calf tenderness. Negative Homans sign bilaterally. NEUROLOGICAL: Awake and alert. Cranial nerves II through XII intact. Motor and sensory grossly within normal limits. Five out of 5 muscle strength in all muscle groups. Normal speech. Laboratory Laboratory Tests Test 05/06/17 09:53 White Blood Count 7.1 Red Blood Count 4.76 Hemoglobin 12.3 Hematocrit 40.1 Mean Corpuscular Volume 84.2 Mean Corpuscular Hemoglobin 25.8 Mean Corpuscular Hemoglobin Concent 30.6 Red Cell Distribution Width 17.2 Platelet Count 316 Mean Platelet Volume 7.8 Neutrophils (%) (Auto) 63.2 Lymphocytes (%) (Auto) 17.9 Monocytes (%) (Auto) 14.1 Eosinophils (%) (Auto) 0.3 Basophils (%) (Auto) 4.5 Neutrophils # (Auto) 4.5 Lymphocytes # (Auto) 1.3 Monocytes # (Auto) 1.0 Eosinophils # (Auto) 0.0 Basophils # (Auto) 0.3 CBC Comment DIFF FINAL Differential Comment Blood Urea Nitrogen 16 Creatinine 1.00 Random Glucose 116 Total Protein 7.8 Albumin 3.3 Calcium Level 8.5 Alkaline Phosphatase 106 Aspartate Amino Transf (AST/SGOT) 67 Alanine Aminotransferase (ALT/SGPT) 26 Total Bilirubin 0.3 Sodium Level 135 Potassium Level 3.7 Chloride Level 95 Carbon Dioxide Level 31.7 Anion Gap 8 Estimat Glomerular Filtration Rate 60 Date/Time Source Procedure Growth Status 05/06/17 09:53 Nasal Aspirate Influenza Types A,B Antigen (ARIS) - Final NEGATIVE FOR FLU A AND B ANTIGEN.... Complete Result Diagram: 05/06/1753 05/06/17 0953 Imaging Last Impressions Chest X-Ray 05/06/17 0930 Signed Impressions: Service Date/Time: Saturday, May 06, 2017 09:49 - CONCLUSION: No acute disease. No significant change has occurred. Jr Marrero MD Septic Shock Reassessment Septic shock perfusion: reassessment completed Caprini VTE Risk Assessment Caprini VTE Risk Assessment: No/Low Risk (score <= 1) Caprini Risk Assessment Model Point Value = 1 Point Value = 2 Point Value = 3 Point Value = 5 Age 41-60 Minor surgery BMI > 25 kg/m2 Swollen legs Varicose veins or History of unexplained or recurrent spontaneous Oral contraceptives or hormone replacement Sepsis (< 1 month) Serious lung disease, including pneumonia (< 1 month) Abnormal pulmonary function Acute myocardial infarction Congestive heart failure (< 1 month) History of inflammatory bowel disease Medical patient at bed rest Age 61-74 Arthroscopic surgery Major open surgery (> 45 min) Laparoscopic surgery (> 45 min) Malignancy Confined to bed (> 72 hours) Immobilizing plaster cast Central venous access Age >= 75 History of VTE Family history of VTE Factor V Leiden Prothrombin [id number] Lupus anticoagulant Anticardiolipin antibodies Elevated serum homocysteine Heparin-induced thrombocytopenia Other congenital or acquired thrombophilia Stroke (< 1 month) Elective arthroplasty Hip, pelvis, or leg fracture Acute spinal cord injury (< 1 month) Prophylaxis Regimen Total Risk Factor Score Risk Level Prophylaxis Regimen 0-1 Low Early ambulation 2 Moderate Order ONE of the following: *Sequential Compression Device (SCD) *Heparin 5000 units SQ BID 3-4 Higher Order ONE of the following medications: *Heparin 5000 units SQ TID *Enoxaparin/Lovenox 40 mg SQ daily (WT < 150 kg, CrCl > 30 mL/min) *Enoxaparin/Lovenox 30 mg SQ daily (WT < 150 kg, CrCl > 10-29 mL/min) *Enoxaparin/Lovenox 30 mg SQ BID (WT < 150 kg, CrCl > 30 mL/min) AND/OR *Sequential Compression Device (SCD) 5 or more Highest Order ONE of the following medications: *Heparin 5000 units SQ TID (Preferred with Epidurals) *Enoxaparin/Lovenox 40 mg SQ daily (WT < 150 kg, CrCl > 30 mL/min) *Enoxaparin/Lovenox 30 mg SQ daily (WT < 150 kg, CrCl > 10-29 mL/min) *Enoxaparin/Lovenox 30 mg SQ BID (WT < 150 kg, CrCl > 30 mL/min) AND *Sequential Compression Device (SCD) Assessment and Plan Problem List: (1) Asthma exacerbation ICD Code: J45.901 - Unspecified asthma with (acute) exacerbation Status: Acute Plan: Advised bronchodilators IV steroids Chest x-ray on my review is normal without acute cardiopulmonary disease Influenza is negative Continue oxygen support for respiratory failure with hypoxemia of 86% on room air and the patient was not known to be on oxygen (2) Chronic low back pain ICD Code: G89.29 - Other chronic pain; M54.5 - Chronic low back pain Status: Chronic Plan: Patient on multiple drugs for pain as well as medications for anxiety and depression I did advise the patient that we will not be able to give her multiple medications for the same indication as there are multiple drug interactions that will need to be taken into account. She expressed understanding Physician Certification 2 Midnight Certification Type: Admission for Inpatient Services Order for Inpatient Services The services are ordered in accordance with Medicare regulations or non- Medicare payer requirements, as applicable. In the case of services not specified as inpatient-only, they are appropriately provided as inpatient services in accordance with the 2-midnight benchmark. Estimated LOS (days): 2 2 days is the estimated time the patient will need to remain in the hospital, assuming treatment plan goals are met and no additional complications. Post-Hospital Plan: Home Problem Qualifiers (1) Asthma exacerbation: Qualified Codes: J45.901 - Unspecified asthma with (acute) exacerbation Yun Borges MD May 06, 2017 14:28
[2017-05-06] MEDS: NICOTINE 14 MG/24 HR PATCH T-DERMAL SCH (15:01)
[2017-05-06] MEDS: RESP: ALBUTEROL 2.5 MG/IPRATROPIUM 0.5 MG NEB (SCH) NEB ×2 (15:33→19:30)
[2017-05-06 16:00] VITALS: BP 122/77; PULSE 75; RESP 14; TEMP 97.5; O2SAT 96
[2017-05-06 19:32] VITALS: O2SAT 98
[2017-05-06 20:00] VITALS: BP 114/64; PULSE 78; RESP 20; TEMP 96.5; O2SAT 97
[2017-05-06] MEDS ORDERED: QUEtiapine FUMARATE 25 MG TAB PO SCH (22:00)
[2017-05-06] MEDS: BUDESONIDE-FORMOTEROL 160/4.5 MCG INHALER INH SCH (22:06)
[2017-05-06] MEDS: SODIUM CHLORIDE 0.9% FLUSH 10 ML FLUSH IV FLUSH SCH (22:06)
[2017-05-06] MEDS: methylPREDNISolone SOD SUCC 125 MG/2 ML VIAL IV PUSH SCH (22:07)
[2017-05-06] MEDS: LISINOPRIL 20 MG TAB PO SCH (22:07)
[2017-05-07] VITALS: BP 127/72; PULSE 73; RESP 20; TEMP 97; O2SAT 96
[2017-05-07 04:00] VITALS: O2SAT 96
[2017-05-07] MEDS: RESP: ALBUTEROL 2.5 MG/IPRATROPIUM 0.5 MG NEB (SCH) NEB ×2 (07:44→14:00)
[2017-05-07 07:48] VITALS: O2SAT 93
[2017-05-07 08:00] VITALS: BP 129/65; PULSE 76; RESP 16; TEMP 96.3; O2SAT 94
[2017-05-07] MEDS ORDERED: QUEtiapine FUMARATE 25 MG TAB PO SCH (09:00)
[2017-05-07] MEDS: BUDESONIDE-FORMOTEROL 160/4.5 MCG INHALER INH SCH (10:17)
[2017-05-07] MEDS: NICOTINE 14 MG/24 HR PATCH T-DERMAL SCH (10:17)
[2017-05-07] MEDS: methylPREDNISolone SOD SUCC 125 MG/2 ML VIAL IV PUSH SCH (10:18)
[2017-05-07] MEDS: LISINOPRIL 20 MG TAB PO SCH (10:18)
[2017-05-07] MEDS: SODIUM CHLORIDE 0.9% FLUSH 10 ML FLUSH IV FLUSH SCH (10:18)
[2017-05-07] MEDS ORDERED: OXYGENDME NAS.CANULA (10:29)
[2017-05-07 12:00] VITALS: BP 118/67; PULSE 70; RESP 18; TEMP 97.2; O2SAT 94
[2017-05-07] MEDS ORDERED: NEBULIZER1 MI1 (13:13)
[2017-05-07] MEDS ORDERED: PRED10PA PO (13:13)
[2017-05-07] MEDS ORDERED: Albuterol-Ipratropium Neb NEB (13:13)
--- NOTE | 2017-05-07 13:16 | HHI.DS ---
Discharge Summary Admission Date May 06, 2017 at 11:26 Discharge Date: May 07, 2017 Admitting Diagnosis asthma exacerbation (1) Asthma exacerbation ICD Code: J45.901 - Unspecified asthma with (acute) exacerbation Status: Acute (2) Chronic low back pain ICD Code: G89.29 - Other chronic pain; M54.5 - Chronic low back pain Status: Chronic Procedures Walk test, failed Brief History - From Admission Patient's 46-year-old female with a history of asthma and chronic tobacco dependency. She also has chronic pain disorder and is on Dilaudid by pain pump , morphine, Cymbalta, gabapentin. She has come to the hospital complaining of increased shortness of breath and increased work of breathing over the last couple of days. She does not have a nebulizer rescue inhaler at home. She recently relocated here from [place] and noted that she was having these symptoms so she came to the emergency room. She was hypoxemic at 86% on room air after nebulized treatments. Steroids were given and the patient still was short of breath with tight lung sounds and significant wheezing. She was recommended for admission to the hospital due to respiratory failure secondary to asthma exacerbation CBC/BMP: 05/06/17 0953 05/06/17 0953 Significant Findings Laboratory Tests Test 05/06/17 09:53 Mean Corpuscular Hemoglobin 25.8 PG (27.0-34.0) Mean Corpuscular Hemoglobin Concent 30.6 % (32.0-36.0) Monocytes (%) (Auto) 14.1 % (0.0-8.0) Basophils (%) (Auto) 4.5 % (0.0-2.0) Monocytes # (Auto) 1.0 TH/MM3 (0-0.9) Basophils # (Auto) 0.3 TH/MM3 (0-0.2) Random Glucose 116 MG/DL (74-106) Albumin 3.3 GM/DL (3.4-5.0) Aspartate Amino Transf (AST/SGOT) 67 U/L (15-37) Sodium Level 135 MEQ/L (136-145) Chloride Level 95 MEQ/L (98-107) Estimat Glomerular Filtration Rate 60 ML/MIN (>89) Imaging Last Impressions Chest X-Ray 05/06/17 0930 Signed Impressions: Service Date/Time: Saturday, May 06, 2017 09:49 - CONCLUSION: No acute disease. No significant change has occurred. Jr Marrero MD PE at Discharge GENERAL: This is a well-nourished, well-developed patient, in no apparent distress. CARDIOVASCULAR: Regular rate and rhythm without murmurs, gallops, or rubs. RESPIRATORY: Clear to auscultation. Breath sounds equal bilaterally. No wheezes , rales, or rhonchi. GASTROINTESTINAL: Abdomen soft, non-tender, nondistended. Normal active bowel sounds MUSCULOSKELETAL: Extremities without clubbing, cyanosis, or edema. NEURO: Alert & Oriented x4 to person, place, time, situation. Moves all ext x4 Pt update on day of discharge Patient she feels better. She is moving more air however after her walk test she did have some hypoxemia and 80%. Discharge plans discussed with patient she is agreeable. Her father is at the bedside and is also concerned regarding her polypharmacy which she has been on due to chronic pain. She is advised to continue follow-up with her pain management doctors in [place]. Hospital Course This patient's 46-year-old female with a known history of ongoing tobacco abuse and asthma. She presents now with increasing dyspnea on exertion and has been treated with nebulizers and steroids. She did feel her walk test requires oxygen. She is advised to discontinue tobacco and continue taking her nebulizers and steroids as prescribed. She and her father at bedside and agree Pt Condition on Discharge: Good Discharge Disposition: Discharge Home Discharge Time: <= 30 minutes Discharge Instructions DIET: Follow Instructions for: As Tolerated, No Restrictions Activities you can perform: Regular-No Restrictions Follow up Referrals: PCP Follow-up - 1 Week New Medications: Nebulizer (Nebulizer) 1 Mis Mis EA .ROUTE DIRECTED for Breathing Treatment, #1 0 Refills Oxygen (O2) (Oxygen (O2)) Device LITER CUATE.CANULA CONTINUOUS for asthma, #2 Oxygen Concentrator Portable Gaseous 2 L/min via Nasal Canula Continuous For 99 months npi [id number] Prednisone (21) 10 mg tab Dose Pack (Prednisone (21) 10 mg tab Dose Pack) 10 Mg Pack 10 MG PO DIRECTED for Inflammation, #1 DSPK 0 Refills [Albuterol-Ipratropium Neb] () 1 AMPULE NEBU 1 AMPULE NEB Q6HR WHILE AWAKE NEB for asthma, #90 Continued Medications: Atorvastatin (Lipitor) 40 Mg Tab 40 MG PO HS for Cholesterol Management, #30 TAB 0 Refills Baclofen (Baclofen) 10 Mg Tab 10 MG PO TID PRN for MUSCLE SPASM, TAB 0 Refills Buspirone (Buspirone) 15 Mg Tab 15 MG PO TID for Anxiety, TAB [address] (Cymbalta DR) 60 Mg Capdr 60 MG PO DAILY, #30 CAP 0 Refills Fluticasone-Salmeterol Inh (Advair Diskus Inh) 250-50 Mcg/Blist Aer 1 PUFF INH BID, #1 INHALER 0 Refills Rinse mouth after use. Gabapentin (Gabapentin) 600 Mg Tab 600 MG PO QID, #90 TAB 0 Refills Hydromorphone (Hydromorphone Dosette) 2 Mg/Ml Inj 2 MG IMPLANT DAILY Hydroxyzine Pamoate (Vistaril) 25 Mg Cap 25 MG PO TID, CAP 0 Refills Ibuprofen (Ibuprofen) 400 Mg Tab 400 MG PO Q8H PRN for PAIN SCALE 6 TO 10, TAB 0 Refills Lisinopril (Lisinopril) 20 Mg Tab 20 MG PO BID, #30 TAB 0 Refills Morphine IR (Morphine IR) 15 Mg Tab 15 MG PO BID PRN for BREAKTHROUGH PAIN, TAB 0 Refills Quetiapine (Quetiapine) 25 Mg Tab 25 MG PO HS, #30 TAB 0 Refills Trazodone (Trazodone) 300 Mg Tab 300 MG PO HS for Control Depression, #30 TAB 0 Refills Yun Borges MD May 07, 2017 13:16
== END 2017-05-07 15:13 | disposition home or self-care (01) | DRG 189 ==
LOC: PHED 09:10 → PHEDA 11:26 → PH3A 13:49
PROVIDERS: ADMIT Hospitalist; ATTEND Hospitalist
DX: J96.91 Respiratory failure, unspecified with hypoxia (principal); J45.901 Unspecified asthma with (acute) exacerbation; F17.210 Nicotine dependence, cigarettes, uncomplicated; G89.29 Other chronic pain; F32.9 Major depressive disorder, single episode, unspecified; F41.9 Anxiety disorder, unspecified; M54.5 Low back pain
CPT/HCPCS: 71046; 80053; 85025; 87804; 93005; 94618; 94640; 94664; J2930